=== PATIENT | male | born 1990 | race American Indian/Alaskan Native ===

== ENCOUNTER 2022-04-01 04:42 | Emergency (ER) | payer MEDICARE ==
[2022-04-01 06:04] VITALS: BP 134/87
[2022-04-01 09:32] LABS: Basophils % (Auto) 0.8 % (0.0-1.8); Eosinophils # (Auto) 0.1 K/mm3 (0.0-0.4); Eosinophils % (Auto) 1.6 % (0.0-4.3); Hemoglobin 12.5 gm/dl (11.8-15.2); Lymphocytes # (Auto) 1.7 K/mm3 (1.2-5.4); Lymphocytes % (Auto) 37.8 % (13.4-35.0); Mean Corpuscular HGB Conc 31 % (32-34); Mean Corpuscular Volume 70 fl (84-94); Monocytes # (Auto) 0.4 K/mm3 (0.0-0.8); Monocytes % (Auto) 8.6 % (0.0-7.3); Platelet Count 225 K/mm3 (140-440); Red Blood Count 5.69 M/mm3 (3.65-5.03)
[2022-04-01 09:55] LABS: Alanine Aminotransferase 9 units/L (7-56); Albumin 4.4 g/dL (3.9-5); BUN/Creatinine Ratio 10; Blood Urea Nitrogen 10 mg/dL (9-20); Hemolysis Index 4
[2022-04-01] MEDS ORDERED: dexAMETHasone 20 MG/5 ML VIAL IM ONE (10:07)
[2022-04-01 10:29] LABS: Bacteria,Urine 1+ /HPF (Negative); Bilirubin,Urine NEG (Negative); Blood,Urine NEG (Negative); Color,Urine Yellow (Yellow); Hyaline Casts,Urine 2 /LPF; Mucus,Urine FEW /HPF; Protein,Urine <15 mg/dL mg/dL (Negative); Urobilinogen,Urine < 2.0 mg/dL (<2.0)
--- NOTE | 2022-04-01 10:47 | Emergency Department Report ---
- General Chief complaint: Weakness Stated complaint: MS COMPLICATIONS Time Seen by Provider: 04/01/22 09:47 Source: patient Mode of arrival: Stretcher Limitations: Physical Limitation - History of Present Illness Initial comments: 31-year-old male with a past medical history of multiple sclerosis presents to the hospital stating he fell while walking with his crutches and had difficulty getting back up. Patient has chronic lower extremity weakness right greater than left secondary to MS and chronically walks with crutches. He also reports that his crutches are worn and broken and he needs a replacement. During ED stay he states he has been able to ambulate around the room as per his baseline. He denies urinary incontinence, retention, or fecal incontinence. He has c hronic right leg numbness which is also unchanged. Patient states in the past he was taking a daily every 12 hour MS pill and receiving q. 6 months IV infusions of Ocrevus for MS. He has not had any of these treatment since December 2020 since he lost his insurance. He recently had his insurance r einstated and visited his neurologist March 14 with plan to restart his MS treatment which is currently being arranged. No reports of fever, dysuria, or pain at this time Patient's neurologist is Dr. Hood at [place] - Related Data Previous Rx's Medication Instructions Recorded Last Taken Type Prednisone [predniSONE 10 mg 10 mg PO .TAPER 6 Days #1 tab 04/01/22 Unknown Rx (6-Day Pack, 21 Tabs)] Allergies Allergy/AdvReac Type Severity Reaction Status Date / Time No Known Allergies Allergy Unverified 04/01/22 06:04 ED Review of Systems ROS: Stated complaint: MS COMPLICATIONS Other details as noted in HPI Comment: All other systems reviewed and negative ED Past Medical Hx - Past Medical History Previous Medical History?: Yes Additional medical history: MS - Surgical History Past Surgical History?: No - Social History Smoking Status: Current Every Day Smoker Substance Use Type: None - Medications Home Medications: Home Medications Medication Instructions Recorded Confirmed Last Taken Type Prednisone [predniSONE 10 mg 10 mg PO .TAPER 6 Days #1 tab 04/01/22 Unknown Rx (6-Day Pack, 21 Tabs)] ED Physical Exam - General Limitations: Physical Limitation - Other Other exam information: General: No acute distress Head: Atraumatic Eyes: normal appearance ENT: Moist mucous membranes Neck: Normal appearance, no midline tenderness Chest: Clear to auscultation bilaterally CV: Regular rate and rhythm Abdomen: Soft, normal bowel sounds, nontender, nondistended, no rebound or guarding Back: Normal inspection Extremity: Normal inspection, full range of motion Neuro: Alert O x 3, no facial asymmetry, speech clear, 5/5 left leg, 3/5 right leg, decrease sensation to light touch right leg, pt states findings are chronic. Psych: Appropriate behavior Skin: No rash ED Course Vital Signs 04/01/22 05:50 Temperature 98.3 F Pulse Rate 68 Respiratory 18 Rate Blood Pressure 134/87 O2 Sat by Pulse 100 Oximetry ED Medical Decision Making - Lab Data Result diagrams: 04/01/22 08:57 04/01/22 08:57 Lab Results 04/01/22 04/01/22 04/01/22 Range/Units 08:57 08:57 10:15 WBC 4.6 (4.5-11.0) K/mm3 RBC 5.69 H (3.65-5.03) M/mm3 Hgb 12.5 (11.8-15.2) gm/dl Hct 40.0 (35.5-45.6) % MCV 70 L (84-94) fl MCH 22 L (28-32) pg MCHC 31 L (32-34) % RDW 15.0 (13.2-15.2) % Plt Count 225 (140-440) K/mm3 Lymph % (Auto) 37.8 H (13.4-35.0) % [place] % (Auto) 8.6 H (0.0-7.3) % Eos % (Auto) 1.6 (0.0-4.3) % Baso % (Auto) 0.8 (0.0-1.8) % Lymph # (Auto) 1.7 (1.2-5.4) K/mm3 [place] # (Auto) 0.4 (0.0-0.8) K/mm3 Eos # (Auto) 0.1 (0.0-0.4) K/mm3 Baso # (Auto) 0.0 (0.0-0.1) K/mm3 Seg Neutrophils % 51.2 (40.0-70.0) % Seg Neutrophils # 2.3 (1.8-7.7) K/mm3 Sodium 142 (137-145) mmol/L Potassium 4.5 (3.6-5.0) mmol/L Chloride 106.1 (98-107) mmol/L Carbon Dioxide 25 (22-30) mmol/L Anion Gap 15 mmol/L BUN 10 (9-20) mg/dL Creatinine 1.0 (0.8-1.3) mg/dL Estimated GFR > 60 ml/min BUN/Creatinine Ratio 10 % Glucose 86 (75-100) mg/dL Calcium 10.0 (8.4-10.2) mg/dL Phosphorus 4.70 H (2.5-4.5) mg/dL Magnesium 2.00 (1.7-2.3) mg/dL Total Bilirubin 0.30 (0.1-1.2) mg/dL AST 10 (5-40) units/L ALT 9 (7-56) units/L Alkaline Phosphatase 63 (35-129) units/L Total Creatine Kinase 138 (55-170) units/L Total Protein 6.1 L (6.3-8.2) g/dL Albumin 4.4 (3.9-5) g/dL Albumin/Globulin Ratio 2.6 % Urine Color Yellow (Yellow) Urine Turbidity Clear (Clear) Urine pH 5.0 (5.0-7.0) Ur Specific [place] 1.017 (1.003-1.030) Urine Protein <15 mg/dl (Negative) mg/dL Urine Glucose (UA) Neg (Negative) mg/dL Urine Ketones Neg (Negative) mg/dL Urine Blood Neg (Negative) Urine Nitrite Neg (Negative) Urine Bilirubin Neg (Negative) Urine Urobilinogen < 2.0 (<2.0) mg/dL Ur Leukocyte Esterase Neg (Negative) Urine WBC (Auto) 2.0 (0.0-6.0) /HPF Urine RBC (Auto) 1.0 (0.0-6.0) /HPF U Epithel Cells (Auto) < 1.0 (0-13.0) /HPF Urine Bacteria (Auto) 1+ (Negative) /HPF Hyaline Casts 2 /LPF Urine Mucus Few /HPF - Medical Decision Making 31-year-old male with multiple sclerosis with chronic lower extremity weakness and crutches dependence presents to the hospital due to an episode of falling and worsening in baseline lower extremity weakness. Patient now states his weakness is back to baseline. He is also asking for replacement crutches given that his crutches are worn and broken. Patient has normal labs and urine without signs of infection. He received 1 dose of IM Decadron and will be discharged on prednisone with outpatient follow-up with his neurologist encouraged Critical Care Time: No Critical care attestation.: If time is entered above; I have spent that time in minutes in the direct care of this critically ill patient, excluding procedure time. ED Disposition Clinical Impression: Multiple sclerosis exacerbation, Lower extremity weakness Disposition: 01 HOME / SELF CARE / HOMELESS Is pt being admited?: No Does the pt Need Aspirin: No Condition: Stable Instructions: Multiple Sclerosis Additional Instructions: Take the medication as prescribed. Follow-up with your neurologist. Return if symptoms worsen as indicated by your discharge instructions. Prescriptions: Prednisone [predniSONE 10 mg (6-Day Pack, 21 Tabs)] 10 mg PO .TAPER 6 Days #1 tab Referrals: PRIMARY CARE, [Primary Care Provider] - 3-5 Days Your, neurologist [Other] - 3-5 Days Time of Disposition: 10:51
== END 2022-04-01 11:19 | disposition home or self-care (01) ==
LOC: ED 04:42
DX: G35 Multiple sclerosis (principal); F17.200 Nicotine dependence, unspecified, uncomplicated; Z79.899 Other long term (current) drug therapy
CPT/HCPCS: 36415; 80053; 81001; 82550; 83735; 84100; 85025; 96372; 99283; J1100

== ENCOUNTER 2022-08-02 18:09 | Inpatient (IN) | payer MEDICARE ==
[2022-08-02] MEDS ORDERED: ACETAMINOPHEN 325 MG TAB PO ONE (19:37)
[2022-08-02] MEDS ORDERED: SODIUM CHLORIDE 0.9% 1000 ML IV SOLN IV ONE (19:38)
--- NOTE | 2022-08-02 20:30 | XRay Report ---
CHEST 1 VIEW 08/02/2022 7:17 PM INDICATION / CLINICAL INFORMATION: fever. COMPARISON: None available. FINDINGS: SUPPORT DEVICES: None. HEART / MEDIASTINUM: No significant abnormality. LUNGS / PLEURA: No significant pulmonary or pleural abnormality. No pneumothorax. ADDITIONAL FINDINGS: No significant additional findings. IMPRESSION: 1. No acute findings. Signer Name: Camille Diaz MD Signed: 08/02/2022 8:26 PM Workstation Name: [id number]
[2022-08-02 20:36] LABS: Alanine Aminotransferase 7 units/L (7-56); Albumin 4.6 g/dL (3.9-5); BUN/Creatinine Ratio 6; Blood Urea Nitrogen 5 mg/dL (9-20); Calcium 9.5 mg/dL (8.4-10.2); Hemolysis Index 5
[2022-08-02 20:41] LABS: Basophils % (Auto) 0.7 % (0.0-1.8); Hematocrit 38.4 % (35.5-45.6); Lymphocytes # (Auto) 0.7 K/mm3 (1.2-5.4); Lymphocytes % (Auto) 12.6 % (13.4-35.0); Mean Corpuscular HGB Conc 31 % (32-34); Monocytes # (Auto) 0.7 K/mm3 (0.0-0.8); Monocytes % (Auto) 12.5 % (0.0-7.3); Platelet Count 246 K/mm3 (140-440); Red Blood Count 5.49 M/mm3 (3.65-5.03); Red Cell Distribution Width 15.9 % (13.2-15.2)
[2022-08-02] MEDS ORDERED: KETOROLAC 30 MG/1 ML INJ IV ONE (20:48)
[2022-08-02 21:03] LABS: Mucus,Urine FEW /HPF; RBC,Urine < 1.0 /HPF (0.0-6.0); WBC,Urine < 1.0 /HPF (0.0-6.0)
--- NOTE | 2022-08-02 21:08 | Emergency Department Report ---
ED Fever HPI - General Chief Complaint: Extremity Injury, Lower Stated Complaint: NOT FEELING WELL Time Seen by Provider: 08/02/22 19:35 Source: patient Exam Limitations: physical impairment - History of Present Illness Initial Comments: 31-year-old male with relapsing and remitting multiple sclerosis presents to the hospital complaining of feeling hot with chills and generalized body aches since yesterday. Patient denies cough, chest pain, shortness of breath, abdominal garth n, dysuria, nausea, vomiting, or diarrhea. He is vaccinated for COVID. Patient reports he is having increased bilateral lower extremity weakness and numbness which also includes his hands. He also reports urinary incontinence. At baseline he has right leg weakness greater than the left and ambulates with crutches. Patient has not had any medication for multiple sclerosis since January 2021 and does not currently follow-up as an outpatient. He states his neurologist Dr. Quintana will not see him anymore ED Review of Systems ROS: Stated complaint: NOT FEELING WELL Other details as noted in HPI Comment: All other systems reviewed and negative ED Past Medical Hx - Past Medical History Additional medical history: MS - Social History Smoking Status: Current Every Day Smoker Substance Use Type: None - Medications Home Medications: Home Medications Medication Instructions Recorded Confirmed Last Taken Type Prednisone [predniSONE 10 mg 10 mg PO .TAPER 6 Days #1 tab 04/01/22 Unknown Rx (6-Day Pack, 21 Tabs)] ED Physical Exam - General Limitations: Physical Limitation - Other Other exam information: General: No acute distress Head: Atraumatic Eyes: normal appearance ENT: Moist mucous membranes Neck: Normal appearance, no midline tenderness, no nuchal rigidity Chest: Clear to auscultation bilaterally CV: Tachycardic regular rhythm Abdomen: Soft, normal bowel sounds, nontender, nondistended, no rebound or guarding Back: Normal inspection Extremity: Normal inspection, full range of motion Neuro: Alert O x 3, no facial asymmetry, speech clear, equal handgrip, 5/5 upper extremity strength. Bilateral leg weakness right greater than left with very weak dorsiflexion and plantarflexion of both feet. Unable to lift either leg off of the bed. Psych: Appropriate behavior Skin: No rash ED Course Vital Signs 08/02/22 08/02/22 08/02/22 18:39 19:43 19:45 Temperature 101.3 F H Pulse Rate 67 64 67 Respiratory 18 11 L 11 L Rate Blood Pressure 125/80 Blood Pressure 140/81 [Left] O2 Sat by Pulse 99 99 Oximetry 08/02/22 08/02/22 08/02/22 19:47 20:01 20:15 Temperature 100.3 F H Pulse Rate 69 64 Respiratory 12 17 Rate Blood Pressure 125/80 135/74 Blood Pressure [Left] O2 Sat by Pulse 100 Oximetry 08/02/22 08/02/22 08/02/22 20:31 20:45 21:01 Temperature Pulse Rate 59 L 66 56 L Respiratory 17 13 18 Rate Blood Pressure 125/80 131/80 131/80 Blood Pressure [Left] O2 Sat by Pulse 99 100 100 Oximetry 08/02/22 08/02/22 08/02/22 21:15 21:31 21:45 Temperature Pulse Rate 62 60 67 Respiratory 10 L 14 14 Rate Blood Pressure 135/76 135/76 112/57 Blood Pressure [Left] O2 Sat by Pulse 99 100 98 Oximetry 08/02/22 21:53 Temperature 98.9 F Pulse Rate Respiratory Rate Blood Pressure Blood Pressure [Left] O2 Sat by Pulse Oximetry - Consultations Consultation #1: 08/02/22 21:32 Case discussed with on-call neurologist Dr. Nobles who does not recommend steroids at this time. She will write a note regarding recommendations for neuro work-up. ED Medical Decision Making - Lab Data Result diagrams: 08/02/22 19:58 08/02/22 19:58 Lab Results 08/02/22 08/02/22 08/02/22 Range/Units 19:58 19:58 19:58 WBC 5.4 (4.5-11.0) K/mm3 RBC 5.49 H (3.65-5.03) M/mm3 Hgb 12.0 (11.8-15.2) gm/dl Hct 38.4 (35.5-45.6) % MCV 70 L (84-94) fl MCH 22 L (28-32) pg MCHC 31 L (32-34) % RDW 15.9 H (13.2-15.2) % Plt Count 246 (140-440) K/mm3 Lymph % (Auto) 12.6 L (13.4-35.0) % [place] % (Auto) 12.5 H (0.0-7.3) % Eos % (Auto) 0.0 (0.0-4.3) % Baso % (Auto) 0.7 (0.0-1.8) % Lymph # (Auto) 0.7 L (1.2-5.4) K/mm3 [place] # (Auto) 0.7 (0.0-0.8) K/mm3 Eos # (Auto) 0.0 (0.0-0.4) K/mm3 Baso # (Auto) 0.0 (0.0-0.1) K/mm3 Seg Neutrophils % 74.2 H (40.0-70.0) % Seg Neutrophils # 4.0 (1.8-7.7) K/mm3 Sodium 141 (137-145) mmol/L Potassium 4.1 (3.6-5.0) mmol/L Chloride 103.9 (98-107) mmol/L Carbon Dioxide 27 (22-30) mmol/L Anion Gap 14 mmol/L BUN 5 L (9-20) mg/dL Creatinine 0.9 (0.8-1.3) mg/dL Estimated GFR > 60 ml/min BUN/Creatinine Ratio 6 % Glucose 101 H (75-100) mg/dL Lactic Acid 1.10 (0.7-2.0) mmol/L Calcium 9.5 (8.4-10.2) mg/dL Total Bilirubin 0.40 (0.1-1.2) mg/dL AST 12 (5-40) units/L ALT 7 (7-56) units/L Alkaline Phosphatase 77 (35-129) units/L Total Protein 6.7 (6.3-8.2) g/dL Albumin 4.6 (3.9-5) g/dL Albumin/Globulin Ratio 2.2 % Urine Color (Yellow) Urine Turbidity (Clear) Ur Protein (Man) (Negative) mg/dL Ur Ketones (Man) (Negative) Ur Nitrite (Man) (Negative) Ur Reducing Substances Urine Ictotest (Negative) Leukocyte Esterase (Man) (Negative) Urine WBC (Auto) (0.0-6.0) /HPF Urine RBC (Auto) (0.0-6.0) /HPF Urine RBC (Manual) (Negative) Urine Mucus /HPF 08/02/22 Range/Units Unknown WBC (4.5-11.0) K/mm3 RBC (3.65-5.03) M/mm3 Hgb (11.8-15.2) gm/dl Hct (35.5-45.6) % MCV (84-94) fl MCH (28-32) pg MCHC (32-34) % RDW (13.2-15.2) % Plt Count (140-440) K/mm3 Lymph % (Auto) (13.4-35.0) % [place] % (Auto) (0.0-7.3) % Eos % (Auto) (0.0-4.3) % Baso % (Auto) (0.0-1.8) % Lymph # (Auto) (1.2-5.4) K/mm3 [place] # (Auto) (0.0-0.8) K/mm3 Eos # (Auto) (0.0-0.4) K/mm3 Baso # (Auto) (0.0-0.1) K/mm3 Seg Neutrophils % (40.0-70.0) % Seg Neutrophils # (1.8-7.7) K/mm3 Sodium (137-145) mmol/L Potassium (3.6-5.0) mmol/L Chloride (98-107) mmol/L Carbon Dioxide (22-30) mmol/L Anion Gap mmol/L BUN (9-20) mg/dL Creatinine (0.8-1.3) mg/dL Estimated GFR ml/min BUN/Creatinine Ratio % Glucose (75-100) mg/dL Lactic Acid (0.7-2.0) mmol/L Calcium (8.4-10.2) mg/dL Total Bilirubin (0.1-1.2) mg/dL AST (5-40) units/L ALT (7-56) units/L Alkaline Phosphatase (35-129) units/L Total Protein (6.3-8.2) g/dL Albumin (3.9-5) g/dL Albumin/Globulin Ratio % Urine Color Yellow (Yellow) Urine Turbidity Clear (Clear) Ur Protein (Man) 1+ (Negative) mg/dL Ur Ketones (Man) Negative (Negative) Ur Nitrite (Man) Negative (Negative) Ur Reducing Substances Not Reportable Urine Ictotest Negative (Negative) Leukocyte Esterase (Man) Negative (Negative) Urine WBC (Auto) < 1.0 (0.0-6.0) /HPF Urine RBC (Auto) < 1.0 (0.0-6.0) /HPF Urine RBC (Manual) Negative (Negative) Urine Mucus Few /HPF - Radiology Data Radiology results: report reviewed CHEST 1 VIEW 08/02/2022 7:17 PM INDICATION / CLINICAL INFORMATION: fever. COMPARISON: None available. FINDINGS: SUPPORT DEVICES: None. HEART / MEDIASTINUM: No significant abnormality. LUNGS / PLEURA: No significant pulmonary or pleural abnormality. No pneumothorax. ADDITIONAL FINDINGS: No significant additional findings. IMPRESSION: 1. No acute findings. - Medical Decision Making 31-year-old male with a past medical history of MS presents to the hospital with fever. Source of fever unknown. Patient does have worsening weakness. Case discussed with neurologist does not advise steroids at this time. Please refer to note for further imaging recommendations. Patient covered broad-spectrum antibiotics until cultures result. Case discussed with hospitalist for admission. Critical Care Time: No Critical care attestation.: If time is entered above; I have spent that time in minutes in the direct care of this critically ill patient, excluding procedure time. ED Disposition Clinical Impression: Fever, Multiple sclerosis exacerbation Disposition: ADMITTED INPATIENT Is pt being admited?: Yes Condition: Stable Time of Disposition: 22:16 (Dr Spencer/hospitaist)
[2022-08-02 21:09] LABS: Mean Corpuscular Volume 70 fl (84-94)
[2022-08-02 21:12] LABS: Color,Urine Yellow (Yellow); Ictotest,Urine Negative (Negative)
--- NOTE | 2022-08-02 21:51 | Emergency Department Report ---
Blank Doc - Documentation Documentation: [facility] Consult Note # Demographics Consult Type: General Neurology Patient Location: Emergency Room First Name: Piyush Last Name: Lorri Date of : 1990 Age: 31 Gender: Male Facility: [facility] Time of Initial Page (Eastern Time): 08/02/2022, 21:24 Time of Return Call (Eastern Time): 08/02/2022, 21:24 Phone Only Consult: 31yo M with h/o RRMS, not on meds due to insurance issue. he is febrile. he has worsened weakness from his baseline with this. no obvious cause for this fever is found so far. having bilateral leg weakness. Phone Agreement: phone consult deemed mutually sufficient for patient care # Plan Imaging: (urgency: routine): MRI Brain with AND without contrast MRI C spine MRI T spine all wwo contrast Other: I have discussed my recommendations with the referring provider Additional Recommendations: hold on steroids unless new enhancing # Logistics Telemedicine: phone only # Demographics First Name: Piyush Last Name: Lorri Facility: [facility]
[2022-08-02] MEDS ORDERED: CEFEPIME/NS 2 GM/100 ML 2 GM/100 ML BAG IV ONE (22:13)
[2022-08-02] MEDS ORDERED: MORPHINE 4 MG/1 ML INJ IV PRN (22:42)
[2022-08-02] MEDS ORDERED: ONDANSETRON 4 MG/2 ML INJ IV PRN (22:42)
--- NOTE | 2022-08-02 22:52 | History and Physical Report ---
History of Present Illness Date of examination: 08/02/22 Date of admission: 08/02/2022 Chief complaint: Fever Lower Extremity Weakness History of present illness: 1-year-old male with known history of relapsing and remitting multiple sclerosis presenting to the emergency room today complaining of generalized body aches and pain over the last 24 hours. He has also been having the sensation of feeling hot location of chills. He denies any cough, no chest pain or shortness of breath, no nausea or vomiting, no abdominal pain, no diarrhea. Patient denies any sick contacts and no recent travel. Denies any contact with anyone with COVID-19. He is fully vaccinated against COVID-19. Patient states he has been having progressive weakness and numbness in his lower extremities and occasionally in his hands. He has had urinary incontinence but denies any fecal incontinence. Does not follow-up any neurologist on outpatient basis at this time and he has not been on medication for over a year. Work-up in the emergency room today, chest x-ray was unremarkable. Patient was evaluated by the neurologist and recommendation was to check MRI of the brain, cervical spine thoracic and lumbosacral spine. Steroid not recommended at this time. Past History Past Medical History: other (Multiple Sclerosis) Past Surgical History: No surgical history Social history: smoking (Current daily smoker) Family history: no significant family history Medications and Allergies Allergies Allergy/AdvReac Type Severity Reaction Status Date / Time No Known Allergies Allergy Unverified 04/01/22 06:04 Home Medications Medication Instructions Recorded Confirmed Last Taken Type Prednisone [predniSONE 10 mg 10 mg PO .TAPER 6 Days #1 tab 04/01/22 Unknown Rx (6-Day Pack, 21 Tabs)] Active Meds: Active Medications Vancomycin HCl 1,750 mg/ (Sodium Chloride) 535 mls @ 333 mls/hr IV ONCE ONE; Protocol Stop: 08/03/22 00:49 Vancomycin HCl 1,250 mg/ (Sodium Chloride) 275 mls @ 166.667 mls/hr IV Q8H [place] Review of Systems Constitutional: no fever, no chills Ears, nose, mouth and throat: no nasal congestion, no sore throat Cardiovascular: no chest pain, no palpitations Respiratory: no cough, no shortness of breath Gastrointestinal: no abdominal pain, no nausea, no vomiting, no diarrhea Genitourinary Male: no dysuria, no hematuria, no flank pain, no nocturia Musculoskeletal: no neck pain, no low back pain Integumentary: no rash, no pruritis Neurological: weakness (Lower extremities), no headaches, no confusion Psychiatric: no anxiety, no depression Endocrine: no polyphagia, no polydipsia, no polyuria, no nocturia Exam - Constitutional Vitals: Temp Pulse Resp BP Pulse Ox 98.9 F 67 14 112/57 98 08/02/22 21:53 08/02/22 21:45 08/02/22 21:45 08/02/22 21:45 08/02/22 21:45 General appearance: Present: no acute distress, well-nourished - EENT Eyes: Present: PERRL, EOM intact. Absent: scleral icterus ENT: hearing intact, clear oral mucosa, dentition normal - Neck Neck: Present: supple, normal ROM - Respiratory Respiratory effort: normal Respiratory: bilateral: CTA - Cardiovascular Rhythm: regular Heart Sounds: Present: S1 & S2. Absent: systolic murmur, diastolic murmur, rub, click - Extremities Extremities: no ischemia, pulses intact, pulses symmetrical, No edema, normal temperature, normal color, abnormal (Bilateral lower extremity weakness) Peripheral Pulses: within normal limits - Abdominal General gastrointestinal: Present: soft, non-tender, non-distended, normal bowel sounds. Absent: mass - Integumentary Integumentary: Present: clear, warm, dry, normal turgor. Absent: rash - Musculoskeletal Musculoskeletal: strength equal bilaterally (In upper extremities), other (Bilateral lower extremity weakness) - Psychiatric Psychiatric: appropriate mood/affect, intact judgment & insight, memory intact, cooperative - Neurologic Neurologic: CNII-XII intact, other (Bilateral lower extremity weakness) Results - Labs CBC & Chem 7: 08/02/22 19:58 08/03/22 04:19 Labs: Abnormal lab results 08/02/22 08/02/22 Range/Units 19:58 19:58 RBC 5.49 H (3.65-5.03) M/mm3 MCV 70 L (84-94) fl MCH 22 L (28-32) pg MCHC 31 L (32-34) % RDW 15.9 H (13.2-15.2) % Lymph % (Auto) 12.6 L (13.4-35.0) % [place] % (Auto) 12.5 H (0.0-7.3) % Lymph # (Auto) 0.7 L (1.2-5.4) K/mm3 Seg Neutrophils % 74.2 H (40.0-70.0) % BUN 5 L (9-20) mg/dL Glucose 101 H (75-100) mg/dL Assessment and Plan Assesment: 1.Feveretiology unclear 2.H/O Multiple Sclerosis 3.Bilateral lower extremity weakness 4. Plan: 1. Patient admitted and placed on empiric IV antibiotics. 2. We will place consult to neurology for further evaluation and recommendations. 3. We will resume routine home medications once reconciled. 4. We will schedule patient's for's MRI of the brain, cervical, thoracic and lumbosacral spine as recommended by neurology. DVT Prophylaxis: SQ Heparin Code Status: Full Code
[2022-08-02] MEDS ORDERED: VANCOMYCIN PHARMACY TO DOSE IV SCH (23:00)
[2022-08-02] MEDS ORDERED: VANCOMYCIN 1,750 MG in SODIUM CHLORIDE 0.9% 500 ML 500 ML IV ONE (23:13)
[2022-08-02] MEDS: MORPHINE 2 MG/1 ML INJ IV PRN (23:36)
[2022-08-03] MEDS: ACETAMINOPHEN 325 MG TAB PO PRN ×2 (01:04→20:31)
[2022-08-03] MEDS: SODIUM CHLORIDE 0.9% 1000 ML 1,000 ML IV SCH (01:05)
[2022-08-03 05:35] LABS: BUN/Creatinine Ratio 6; Blood Urea Nitrogen 5 mg/dL (9-20); Calcium 8.2 mg/dL (8.4-10.2); Hemolysis Index 9
[2022-08-03] MEDS: MORPHINE 2 MG/1 ML INJ IV PRN ×2 (05:55→20:32)
[2022-08-03] MEDS: HEPARIN 5,000 UNIT/1 ML VIAL SUB-Q SCH ×3 (05:56→22:01)
[2022-08-03] MEDS ORDERED: VANCOMYCIN 1,250 MG in SODIUM CHLORIDE 0.9% 250ML 250 ML IV SCH (06:00)
--- NOTE | 2022-08-03 11:30 | Progress Note ---
Assessment and Plan 31-year-old male with known history of relapsing and remitting multiple sclerosis presenting to the emergency room complaining of generalized body aches and pain over the last 24 hours. Patient states he has been having progressive weakness and numbness in his lower extremities and occasionally in his hands. He has had urinary incontinence but denies any fecal incontinence. Does not follow-up any neurologist on outpatient basis at this time and he has not been on medication for over a year. Work-up in the emergency room showed unremarkable chest x-ray. Patient was evaluated by the neurologist and recommendation was to check MRI of the brain, cervical spine thoracic and lumbosacral spine. Steroid not recommended at this time. Patient also tested positive for COVID-19 today, he is fully vaccinated against COVID-19. Assessment -- Feverdue to positive COVID 19 -- H/O Multiple Sclerosis -- Bilateral lower extremity weakness -MS flare ?? --Bladder incontinance --DVT Prophylaxis: SQ Heparin --Code Status: Full Code Plan: -- will dc abx if blood cx neg, follow inflammatory markers, pt on RA - no need for steroid -- consulted neurology for further evaluation and recommendations. --resumed routine home medications -- pending MRI of the brain, cervical, thoracic and lumbosacral spine as recommended by neurology. Subjective Date of service: 08/03/22 Interval history: Patient seen and examined. Medical records and medication list reviewed. No acute event overnight noted by the RN. Patient denies any chest pain or difficulty breathing. Patient is tolerating diet. Discussed plan of care at bedside with patient. Patient is positive for COVID-19 Objective - Exam Narrative Exam: GENERAL: well-developed and well-nourished lying on bed appeared to be in no discomfort. HEENT: Normocephalic. Atraumatic. No conjunctival congestion or icterus. Patient has moist mucous membranes. NECK: Supple. Trachea midline. CHEST/LUNGS: Clear to auscultated bilaterally, breathing nonlabored. No wheezes crackles or rhonchi. HEART/CARDIOVASCULAR: Regular in rate and rhythm. S1 and S2 positive. ABDOMEN: Abdomen is soft, nontender. Patient has normal bowel sounds. SKIN: There is no rash. Warm and dry. NEURO: No focal motor deficit. Follows command. MUSCULOSKELETAL: No joint effusion or tenderness. EXTRIMITY: No edema, no cyanosis or clubbing. PSYCH: Cooperative. - Constitutional Vitals: Vital Signs - 12hr 08/02/22 08/02/22 08/02/22 23:31 23:45 23:51 Temperature Pulse Rate 74 67 60 Respiratory 17 14 15 Rate Blood Pressure 115/74 98/53 98/53 O2 Sat by Pulse 100 100 99 Oximetry 08/03/22 08/03/22 08/03/22 00:01 00:11 00:30 Temperature 97.2 F L Pulse Rate 62 62 55 L Respiratory 16 15 18 Rate Blood Pressure 98/53 98/53 106/63 O2 Sat by Pulse 97 100 96 Oximetry 08/03/22 05:53 Temperature 98.0 F Pulse Rate 54 L Respiratory Rate Blood Pressure 106/55 O2 Sat by Pulse 100 Oximetry - Labs CBC & Chem 7: 08/02/22 19:58 08/03/22 04:19 Labs: Abnormal lab results 08/02/22 08/02/22 08/03/22 Range/Units 19:58 19:58 04:19 RBC 5.49 H (3.65-5.03) M/mm3 MCV 70 L (84-94) fl MCH 22 L (28-32) pg MCHC 31 L (32-34) % RDW 15.9 H (13.2-15.2) % Lymph % (Auto) 12.6 L (13.4-35.0) % Wirt % (Auto) 12.5 H (0.0-7.3) % Lymph # (Auto) 0.7 L (1.2-5.4) K/mm3 Seg Neutrophils % 74.2 H (40.0-70.0) % Chloride 111.6 H (98-107) mmol/L Carbon Dioxide 21 L (22-30) mmol/L BUN 5 L 5 L (9-20) mg/dL Glucose 101 H 126 H (75-100) mg/dL Calcium 8.2 L (8.4-10.2) mg/dL SARS-CoV-2 (PCR) (Negative) 08/03/22 Range/Units 09:37 RBC (3.65-5.03) M/mm3 MCV (84-94) fl MCH (28-32) pg MCHC (32-34) % RDW (13.2-15.2) % Lymph % (Auto) (13.4-35.0) % Wirt % (Auto) (0.0-7.3) % Lymph # (Auto) (1.2-5.4) K/mm3 Seg Neutrophils % (40.0-70.0) % Chloride (98-107) mmol/L Carbon Dioxide (22-30) mmol/L BUN (9-20) mg/dL Glucose (75-100) mg/dL Calcium (8.4-10.2) mg/dL SARS-CoV-2 (PCR) Positive A (Negative)
[2022-08-04] MEDS: HEPARIN 5,000 UNIT/1 ML VIAL SUB-Q SCH ×3 (05:56→22:42)
[2022-08-04 09:06] LABS: C-Reactive Protein 1.8 mg/dL (0.00-1.30)
--- NOTE | 2022-08-04 10:12 | Progress Note ---
Assessment and Plan 31-year-old male with known history of relapsing and remitting multiple sclerosis presenting to the emergency room complaining of generalized body aches and pain over the last 24 hours. Patient states he has been having progressive weakness and numbness in his lower extremities and occasionally in his hands. He has had urinary incontinence but denies any fecal incontinence. Does not follow-up any neurologist on outpatient basis at this time and he has not been on medication for over a year. Work-up in the emergency room showed unremarkable chest x-ray. Patient was evaluated by the neurologist and recommendation was to check MRI of the brain, cervical spine thoracic and lumbosacral spine. Steroid not recommended at this time. Patient also tested positive for COVID-19 today, he is fully vaccinated against COVID-19. Assessment -- Feverdue to positive COVID 19 -- H/O Multiple Sclerosis -- Bilateral lower extremity weakness -MS flare ?? --Bladder incontinance --Peripheral neuropathy --DVT Prophylaxis: SQ Heparin --Code Status: Full Code Plan: -- will dc abx if blood cx neg, follow inflammatory markers, pt on RA - no need for steroid -- consulted neurology for further evaluation and recommendations. --resumed routine home medications -- pending MRI of the brain, cervical, thoracic and lumbosacral spine as recommended by neurology. -- Wait for PT eval, add neurontin for neuropathy Subjective Date of service: 08/04/22 Interval history: Patient seen and examined. Medical records and medication list reviewed. No acute event overnight noted by the RN. Patient denies any chest pain or difficulty breathing. Patient is tolerating diet. Discussed plan of care at bedside with patient. Patient is positive for COVID-19 Objective - Exam Narrative Exam: GENERAL: well-developed and well-nourished AAM lying on bed appeared to be in no discomfort. HEENT: Normocephalic. Atraumatic. No conjunctival congestion or icterus. Patient has moist mucous membranes. NECK: Supple. Trachea midline. CHEST/LUNGS: Clear to auscultated bilaterally, breathing nonlabored. No wheezes crackles or rhonchi. HEART/CARDIOVASCULAR: Regular in rate and rhythm. S1 and S2 positive. ABDOMEN: Abdomen is soft, nontender. Patient has normal bowel sounds. SKIN: There is no rash. Warm and dry. NEURO: No focal motor deficit. Follows command. b/l LE weakness MUSCULOSKELETAL: No joint effusion or tenderness. EXTRIMITY: No edema, no cyanosis or clubbing. PSYCH: Cooperative. - Constitutional Vitals: Vital Signs - 12hr 08/04/22 06:02 Temperature 97.9 F Pulse Rate 52 L Respiratory 18 Rate Blood Pressure 104/66 [Left] O2 Sat by Pulse 100 Oximetry - Labs CBC & Chem 7: 08/02/22 19:58 08/04/22 07:59 Labs: Abnormal lab results 08/04/22 Range/Units 07:59 C-Reactive Protein 1.80 H (0.00-1.30) mg/dL
[2022-08-04] MEDS: GABAPENTIN 100 MG CAP PO SCH ×2 (14:49→22:42)
[2022-08-04] MEDS: SODIUM CHLORIDE 0.9% 1000 ML 1,000 ML IV SCH (15:02)
[2022-08-04] MEDS: MORPHINE 2 MG/1 ML INJ IV PRN ×2 (15:03→22:51)
[2022-08-05] MEDS: HEPARIN 5,000 UNIT/1 ML VIAL SUB-Q SCH ×3 (05:50→22:03)
[2022-08-05] MEDS: GABAPENTIN 100 MG CAP PO SCH ×3 (05:50→22:03)
[2022-08-05] MEDS: SODIUM CHLORIDE 0.9% 1000 ML 1,000 ML IV SCH ×2 (06:42→22:10)
--- NOTE | 2022-08-05 08:09 | Progress Note ---
Assessment and Plan Assessment and plan: The patient is a 56 YO male with history of Hypertension, DM-2, Diabetic retinopathy and CKD who was brought to [facility] ED 07/29/22 with increasing bilateral leg swelling and shortness of breath. Patient is a poor historian. The patient admits that he has been out of his medications for several weeks and currently he is not following with any physician. Initially when he presented to the emergency department he was complaining of chest pain which has resolved. His initial BP was 212/123 mmHg. Chest x-ray showed pulmonary edema and pleural effusion. Labs notable for Creatinine 3.5 and BUN 41. Chest pain Nonischemic cardiomyopathy Severe pulmonary hypertension Acute on chronic systolic heart failure Acute kidney injury on chronic kidney disease Diabetes mellitus type 2 07/30/2022. Lexiscan stress test completed today shows normal myocardial perfusion in all segments with an EF of 42%. An echocardiogram completed in this hospital 3 months ago revealed moderate left ventricular systolic dysfunction with EF 35-40%. There was moderate left ventricular hypertrophy. Also, patient was noted to have severe pulmonary hypertension. Cardiology recommends afterload reducing agents and beta-blockers. Patient appears to have a baseline creatinine of approximately 2.2. Nephrology has been consulted. Continue Accu-Cheks and sliding scale insulin. We will consult pulmonary for pulmonary hypertension as per cardiology recommendation 07/31/2022. Await pulmonology evaluation. Continue blood pressure control with amlodipine, hydralazine and clonidine. Continue aspirin, Coreg and Lasix twice daily. GDMT per cardiology recommendations. Patient currently only requiring 3 L of oxygen. Patient with vasomotor PRASAD superimposed on CKD in the setting of decompensated systolic heart failure. Renal ultrasound negative for hydronephrosis. Creatinine appears to have leveled off. Nephrology following. 08/02/2022. CT of the chest revealed pleural fluid and atelectasis right greater than left with mild right-sided pneumonia. No clinical evidence for pneumonia at this time. We will check a procalcitonin level and start empiric antibiotics. Discontinue antibiotics if procalcitonin normal. Patient also with soft tissue anasarca. Pulmonary suggests right heart cath for assessment of the patient's pulmonary hypertension. Cardiology to plan for catheterization. 08/03/2022. Continue IV antibiotics until procalcitonin level resulted. Await right heart catheterization per cardiology. Continue aspirin, isosorbide, Coreg and Lasix. Continue O2 to maintain sats greater than 92%. Renal ultrasound negative for hydronephrosis. Patient with cardiorenal syndrome. Creatinine continues to rise with 3.7 today 08/04/2022. Patient is stable and denies any cardiac symptoms at this time. Cardiology recommends to continue treatment for heart failure as per the GDMT. Patient is scheduled for a right and left heart catheterization on Friday. Creatinine slightly better at 3.3. Vasomotor PRASAD superimposed on CKD in the setting of decompensated CHF. Avoid nephrotoxic agents. Procalcitonin normal so will d/c abx. PT eval. 08/05/2022. Continue GDMT for heart failure. Patient is stable and denies any cardiac symptoms at this time. Patient is scheduled for a right and left heart catheterization tomorrow. Creatinine has improved again today to 2.9. Vasomotor PRASAD superimposed on CKD in the setting of decompensated CHF. Avoid nephrotoxic agents. Cardiology, pulmonary and nephrology following History Interval history: No new issues Hospitalist Physical - Constitutional Vitals: Temp Pulse Resp BP Pulse Ox 97.9 F 52 L 18 112/56 100 08/05/22 05:55 08/05/22 05:55 08/05/22 05:55 08/05/22 05:55 08/05/22 05:55 General appearance: Present: no acute distress, well-nourished - EENT Eyes: Present: PERRL, EOM intact ENT: hearing intact, clear oral mucosa, dentition normal - Neck Neck: Present: supple, normal ROM - Respiratory Respiratory effort: normal Respiratory: bilateral: CTA - Cardiovascular Rhythm: regular Heart Sounds: Present: S1 & S2. Absent: gallop, rub - Extremities Extremities: no ischemia, No edema, Full ROM - Abdominal General gastrointestinal: soft, non-tender, non-distended, normal bowel sounds - Integumentary Integumentary: Present: clear, warm, dry - Neurologic Neurologic: CNII-XII intact, moves all extremities Results - Labs CBC & Chem 7: 08/02/22 19:58 08/04/22 07:59 Labs: Laboratory Last Values WBC 5.4 K/mm3 (4.5-11.0) 08/02/22 19:58 RBC 5.49 M/mm3 (3.65-5.03) H 08/02/22 19:58 Hgb 12.0 gm/dl (11.8-15.2) 08/02/22 19:58 Hct 38.4 % (35.5-45.6) 08/02/22 19:58 MCV 70 fl (84-94) L 08/02/22 19:58 MCH 22 pg (28-32) L 08/02/22 19:58 MCHC 31 % (32-34) L 08/02/22 19:58 RDW 15.9 % (13.2-15.2) H 08/02/22 19:58 Plt Count 246 K/mm3 (140-440) 08/02/22 19:58 Lymph % (Auto) 12.6 % (13.4-35.0) L 08/02/22 19:58 Boyle % (Auto) 12.5 % (0.0-7.3) H 08/02/22 19:58 Eos % (Auto) 0.0 % (0.0-4.3) 08/02/22 19:58 Baso % (Auto) 0.7 % (0.0-1.8) 08/02/22 19:58 Lymph # (Auto) 0.7 K/mm3 (1.2-5.4) L 08/02/22 19:58 Boyle # (Auto) 0.7 K/mm3 (0.0-0.8) 08/02/22 19:58 Eos # (Auto) 0.0 K/mm3 (0.0-0.4) 08/02/22 19:58 Baso # (Auto) 0.0 K/mm3 (0.0-0.1) 08/02/22 19:58 Seg Neutrophils % 74.2 % (40.0-70.0) H 08/02/22 19:58 Seg Neutrophils # 4.0 K/mm3 (1.8-7.7) 08/02/22 19:58 D-Dimer 138.01 ng/mlDDU (0-234) 08/04/22 07:59 Sodium 144 mmol/L (137-145) 08/03/22 04:19 Potassium 3.9 mmol/L (3.6-5.0) 08/03/22 04:19 Chloride 111.6 mmol/L (98-107) H 08/03/22 04:19 Carbon Dioxide 21 mmol/L (22-30) L 08/03/22 04:19 Anion Gap 15 mmol/L 08/03/22 04:19 BUN 5 mg/dL (9-20) L 08/03/22 04:19 Creatinine 0.8 mg/dL (0.8-1.3) 08/03/22 04:19 Estimated GFR > 60 ml/min 08/03/22 04:19 BUN/Creatinine Ratio 6 % 08/03/22 04:19 Glucose 86 mg/dL (75-100) 08/04/22 07:59 Lactic Acid 1.50 mmol/L (0.7-2.0) 08/03/22 04:19 Calcium 8.2 mg/dL (8.4-10.2) L 08/03/22 04:19 Ferritin 137.2 ng/mL (30.0-300.0) 08/04/22 07:59 Total Bilirubin 0.40 mg/dL (0.1-1.2) 08/02/22 19:58 AST 12 units/L (5-40) 08/02/22 19:58 ALT 7 units/L (7-56) 08/02/22 19:58 Alkaline Phosphatase 77 units/L (35-129) 08/02/22 19:58 Lactate Dehydrogenase 131 units/L (91-180) 08/04/22 07:59 C-Reactive Protein 1.80 mg/dL (0.00-1.30) H 08/04/22 07:59 Total Protein 6.7 g/dL (6.3-8.2) 08/02/22 19:58 Albumin 4.6 g/dL (3.9-5) 08/02/22 19:58 Albumin/Globulin Ratio 2.2 % 08/02/22 19:58 Procalcitonin < 0.05 ng/mL (<0.15) 08/04/22 07:59 Urine Color Yellow (Yellow) 08/02/22 Unknown Urine Turbidity Clear (Clear) 08/02/22 Unknown Ur Protein (Man) 1+ mg/dL (Negative) 08/02/22 Unknown Ur Ketones (Man) Negative (Negative) 08/02/22 Unknown Ur Nitrite (Man) Negative (Negative) 08/02/22 Unknown Ur Reducing Substances Not Reportable 08/02/22 Unknown Urine Ictotest Negative (Negative) 08/02/22 Unknown Leukocyte Esterase (Man) Negative (Negative) 08/02/22 Unknown Urine WBC (Auto) < 1.0 /HPF (0.0-6.0) 08/02/22 Unknown Urine RBC (Auto) < 1.0 /HPF (0.0-6.0) 08/02/22 Unknown Urine RBC (Manual) Negative (Negative) 08/02/22 Unknown Urine Mucus Few /HPF 08/02/22 Unknown SARS-CoV-2 (PCR) Positive (Negative) A 08/03/22 09:37 Microbiology: Microbiology 08/02/22 19:58 Peripheral/Venous Blood Culture - Preliminary NO GROWTH AFTER 48 HOURS 08/02/22 19:58 Peripheral/Venous Blood Culture - Preliminary NO GROWTH AFTER 48 HOURS Rodriguez/IV: Voiding Method Condom Catheter Active Medications - Current Medications Current Medications: Generic Name Dose Route Start Last Admin Trade Name Freq PRN Reason Stop Dose Admin Acetaminophen 650 mg 08/02/22 22:42 08/03/22 20:31 Acetaminophen 325 Mg Tab PO 650 mg Q4H PRN Administration Pain MILD(1-3)/Fever >100.5/GARCÍA Gabapentin 100 mg 08/04/22 14:00 08/05/22 05:50 Gabapentin 100 Mg Cap PO 100 mg Q8HR HAILEY Administration Heparin Sodium (Porcine) 5,000 unit 08/03/22 06:00 08/05/22 05:50 Heparin 5,000 Unit/1 Ml Vial SUB-Q 5,000 unit Q8HR HAILEY Administration Sodium Chloride 1,000 mls @ 75 mls/hr 08/02/22 22:45 08/05/22 06:42 Nacl 0.9% 1000 Ml IV 75 mls/hr DIRECT HAILEY Administration Morphine Sulfate 2 mg 08/02/22 22:42 08/04/22 22:51 Morphine 2 Mg/1 Ml Inj IV 2 mg Q4H PRN Administration Pain, Moderate (4-6) Morphine Sulfate 4 mg 08/02/22 22:42 Morphine 4 Mg/1 Ml Inj IV Q4H PRN Pain , Severe (7-10) Ondansetron HCl 4 mg 08/02/22 22:42 Ondansetron 4 Mg/2 Ml Inj IV Q8H PRN Nausea And Vomiting Sodium Chloride 10 ml 08/03/22 10:00 08/04/22 22:42 Sodium Chloride 0.9% 10 Ml Flush Syringe IV 10 ml BID HAILEY Administration Sodium Chloride 10 ml 08/02/22 22:42 Sodium Chloride 0.9% 10 Ml Flush Syringe IV PRN PRN LINE FLUSH
--- NOTE | 2022-08-05 08:24 | Progress Note ---
Assessment and Plan Assessment and plan: 31-year-old male with known history of relapsing and remitting multiple sclerosis presenting to the emergency room complaining of generalized body aches and pain over the last 24 hours. Patient states he has been having progressive weakness and numbness in his lower extremities and occasionally in his hands. He has had urinary incontinence but denies any fecal incontinence. Does not follow-up any neurologist on outpatient basis at this time and he has not been on medication for over a year. Work-up in the emergency room showed unremarkable chest x-ray. Patient was evaluated by the neurologist and recommendation was to check MRI of the brain, cervical spine thoracic and lumbosacral spine. Steroid not recommended at this time. Patient also tested positive for COVID-19 on 08/03/2022, he is fully vaccinated against COVID-19. Assessment COVID-19 infection Multiple Sclerosis Bilateral lower extremity weakness -MS flare ?? Bladder incontinence Peripheral neuropathy DVT Prophylaxis: SQ Heparin Code Status: Full Code Plan: will dc abx if blood cx neg, follow inflammatory markers, pt on RA - no need for steroid consulted neurology for further evaluation and recommendations. resumed routine home medications pending MRI of the brain, cervical, thoracic and lumbosacral spine as recommended by neurology. Consider steroids for MS flare, holding for now per neurology recommendation. Await neurology consultation Await for PT eval Continue neurontin for neuropathy History Interval history: No new issues overnight Hospitalist Physical - Constitutional Vitals: Temp Pulse Resp BP Pulse Ox 97.9 F 52 L 18 112/56 100 08/05/22 05:55 08/05/22 05:55 08/05/22 05:55 08/05/22 05:55 08/05/22 05:55 General appearance: Present: no acute distress, well-nourished - EENT Eyes: Present: PERRL, EOM intact ENT: hearing intact, clear oral mucosa, dentition normal - Neck Neck: Present: supple, normal ROM - Respiratory Respiratory effort: normal Respiratory: bilateral: CTA - Cardiovascular Rhythm: regular Heart Sounds: Present: S1 & S2. Absent: gallop, rub - Extremities Extremities: no ischemia, No edema, Full ROM - Abdominal General gastrointestinal: soft, non-tender, non-distended, normal bowel sounds - Integumentary Integumentary: Present: clear, warm, dry - Neurologic Neurologic: CNII-XII intact, moves all extremities Results - Labs CBC & Chem 7: 08/02/22 19:58 08/04/22 07:59 Labs: Laboratory Last Values WBC 5.4 K/mm3 (4.5-11.0) 08/02/22 19:58 RBC 5.49 M/mm3 (3.65-5.03) H 08/02/22 19:58 Hgb 12.0 gm/dl (11.8-15.2) 08/02/22 19:58 Hct 38.4 % (35.5-45.6) 08/02/22 19:58 MCV 70 fl (84-94) L 08/02/22 19:58 MCH 22 pg (28-32) L 08/02/22 19:58 MCHC 31 % (32-34) L 08/02/22 19:58 RDW 15.9 % (13.2-15.2) H 08/02/22 19:58 Plt Count 246 K/mm3 (140-440) 08/02/22 19:58 Lymph % (Auto) 12.6 % (13.4-35.0) L 08/02/22 19:58 Vigo % (Auto) 12.5 % (0.0-7.3) H 08/02/22 19:58 Eos % (Auto) 0.0 % (0.0-4.3) 08/02/22 19:58 Baso % (Auto) 0.7 % (0.0-1.8) 08/02/22 19:58 Lymph # (Auto) 0.7 K/mm3 (1.2-5.4) L 08/02/22 19:58 Vigo # (Auto) 0.7 K/mm3 (0.0-0.8) 08/02/22 19:58 Eos # (Auto) 0.0 K/mm3 (0.0-0.4) 08/02/22 19:58 Baso # (Auto) 0.0 K/mm3 (0.0-0.1) 08/02/22 19:58 Seg Neutrophils % 74.2 % (40.0-70.0) H 08/02/22 19:58 Seg Neutrophils # 4.0 K/mm3 (1.8-7.7) 08/02/22 19:58 D-Dimer 138.01 ng/mlDDU (0-234) 08/04/22 07:59 Sodium 144 mmol/L (137-145) 08/03/22 04:19 Potassium 3.9 mmol/L (3.6-5.0) 08/03/22 04:19 Chloride 111.6 mmol/L (98-107) H 08/03/22 04:19 Carbon Dioxide 21 mmol/L (22-30) L 08/03/22 04:19 Anion Gap 15 mmol/L 08/03/22 04:19 BUN 5 mg/dL (9-20) L 08/03/22 04:19 Creatinine 0.8 mg/dL (0.8-1.3) 08/03/22 04:19 Estimated GFR > 60 ml/min 08/03/22 04:19 BUN/Creatinine Ratio 6 % 08/03/22 04:19 Glucose 86 mg/dL (75-100) 08/04/22 07:59 Lactic Acid 1.50 mmol/L (0.7-2.0) 08/03/22 04:19 Calcium 8.2 mg/dL (8.4-10.2) L 08/03/22 04:19 Ferritin 137.2 ng/mL (30.0-300.0) 08/04/22 07:59 Total Bilirubin 0.40 mg/dL (0.1-1.2) 08/02/22 19:58 AST 12 units/L (5-40) 08/02/22 19:58 ALT 7 units/L (7-56) 08/02/22 19:58 Alkaline Phosphatase 77 units/L (35-129) 08/02/22 19:58 Lactate Dehydrogenase 131 units/L (91-180) 08/04/22 07:59 C-Reactive Protein 1.80 mg/dL (0.00-1.30) H 08/04/22 07:59 Total Protein 6.7 g/dL (6.3-8.2) 08/02/22 19:58 Albumin 4.6 g/dL (3.9-5) 08/02/22 19:58 Albumin/Globulin Ratio 2.2 % 08/02/22 19:58 Procalcitonin < 0.05 ng/mL (<0.15) 08/04/22 07:59 Urine Color Yellow (Yellow) 08/02/22 Unknown Urine Turbidity Clear (Clear) 08/02/22 Unknown Ur Protein (Man) 1+ mg/dL (Negative) 08/02/22 Unknown Ur Ketones (Man) Negative (Negative) 08/02/22 Unknown Ur Nitrite (Man) Negative (Negative) 08/02/22 Unknown Ur Reducing Substances Not Reportable 08/02/22 Unknown Urine Ictotest Negative (Negative) 08/02/22 Unknown Leukocyte Esterase (Man) Negative (Negative) 08/02/22 Unknown Urine WBC (Auto) < 1.0 /HPF (0.0-6.0) 08/02/22 Unknown Urine RBC (Auto) < 1.0 /HPF (0.0-6.0) 08/02/22 Unknown Urine RBC (Manual) Negative (Negative) 08/02/22 Unknown Urine Mucus Few /HPF 08/02/22 Unknown SARS-CoV-2 (PCR) Positive (Negative) A 08/03/22 09:37 Microbiology: Microbiology 08/02/22 19:58 Peripheral/Venous Blood Culture - Preliminary NO GROWTH AFTER 48 HOURS 08/02/22 19:58 Peripheral/Venous Blood Culture - Preliminary NO GROWTH AFTER 48 HOURS Rodriguez/IV: Voiding Method Condom Catheter Active Medications - Current Medications Current Medications: Generic Name Dose Route Start Last Admin Trade Name Rayq PRN Reason Stop Dose Admin Acetaminophen 650 mg 08/02/22 22:42 08/03/22 20:31 Acetaminophen 325 Mg Tab PO 650 mg Q4H PRN Administration Pain MILD(1-3)/Fever >100.5/GARCÍA Gabapentin 100 mg 08/04/22 14:00 08/05/22 05:50 Gabapentin 100 Mg Cap PO 100 mg Q8HR HAILEY Administration Heparin Sodium (Porcine) 5,000 unit 08/03/22 06:00 08/05/22 05:50 Heparin 5,000 Unit/1 Ml Vial SUB-Q 5,000 unit Q8HR HAILEY Administration Sodium Chloride 1,000 mls @ 75 mls/hr 08/02/22 22:45 08/05/22 06:42 Nacl 0.9% 1000 Ml IV 75 mls/hr DIRECT HAILEY Administration Morphine Sulfate 2 mg 08/02/22 22:42 08/04/22 22:51 Morphine 2 Mg/1 Ml Inj IV 2 mg Q4H PRN Administration Pain, Moderate (4-6) Morphine Sulfate 4 mg 08/02/22 22:42 Morphine 4 Mg/1 Ml Inj IV Q4H PRN Pain , Severe (7-10) Ondansetron HCl 4 mg 08/02/22 22:42 Ondansetron 4 Mg/2 Ml Inj IV Q8H PRN Nausea And Vomiting Sodium Chloride 10 ml 08/03/22 10:00 08/04/22 22:42 Sodium Chloride 0.9% 10 Ml Flush Syringe IV 10 ml BID HAILEY Administration Sodium Chloride 10 ml 08/02/22 22:42 Sodium Chloride 0.9% 10 Ml Flush Syringe IV PRN PRN LINE FLUSH
[2022-08-05] MEDS: MORPHINE 2 MG/1 ML INJ IV PRN (22:04)
[2022-08-06] MEDS: GABAPENTIN 100 MG CAP PO SCH ×3 (05:42→22:05)
[2022-08-06] MEDS: HEPARIN 5,000 UNIT/1 ML VIAL SUB-Q SCH ×3 (05:43→22:04)
[2022-08-06] MEDS: SODIUM CHLORIDE 0.9% 1000 ML 1,000 ML IV SCH (13:13)
--- NOTE | 2022-08-06 13:43 | Progress Note ---
Assessment and Plan Assessment and plan: 31-year-old male with known history of relapsing and remitting multiple sclerosis presenting to the emergency room complaining of generalized body aches and pain over the last 24 hours. Patient states he has been having progressive weakness and numbness in his lower extremities and occasionally in his hands. He has had urinary incontinence but denies any fecal incontinence. Does not follow-up any neurologist on outpatient basis at this time and he has not been on medication for over a year. Work-up in the emergency room showed unremarkable chest x-ray. Patient was evaluated by the neurologist and recommendation was to check MRI of the brain, cervical spine thoracic and lumbosacral spine. Steroid not recommended at this time. Patient also tested positive for COVID-19 on 08/03/2022, he is fully vaccinated against COVID-19. #COVID-19 infection Patient currently saturating well on room air; therefore, patient does not require steroid administration for COVID-19 infection or remdesivir Continue airborne and droplet precautions #Multiple Sclerosis exacerbation #Bladder incontinence #Peripheral neuropathy Currently pending MRI brain with and without contrast, MRI cervical spine/thoracic spine/lumbar spine Neurology consulted; pending recs Currently holding on steroids for multiple sclerosis exacerbation. Awaiting neurology's recommendations about possible initiation. Continue Neurontin Pending PT evaluation. Continue Rodriguez #Advanced care planning -Disease education conducted, care plan discussed, diagnoses discussed, prognosis discussed, and patient acknowledges understanding with care plan -Time: +30 min Disposition Plan: Continue medical management Total Time Spent with Patient (Minutes): 45 minutes History Interval history: No acute events overnight. Hospitalist Physical - Constitutional Vitals: Temp Pulse Resp BP Pulse Ox 97.7 F 50 L 18 107/59 98 08/06/22 04:28 08/06/22 04:28 08/06/22 04:28 08/06/22 04:28 08/06/22 04:28 General appearance: Present: no acute distress, well-nourished - EENT Eyes: Present: PERRL, EOM intact ENT: hearing intact, clear oral mucosa, dentition normal - Neck Neck: Present: supple, normal ROM - Respiratory Respiratory effort: normal Respiratory: bilateral: CTA - Cardiovascular Rhythm: regular Heart Sounds: Present: S1 & S2 - Extremities Extremities: no ischemia, pulses intact, pulses symmetrical, No edema, normal temperature, normal color Peripheral Pulses: within normal limits - Abdominal General gastrointestinal: soft, non-tender, non-distended, normal bowel sounds - Integumentary Integumentary: Present: clear, warm, dry - Psychiatric Psychiatric: appropriate mood/affect, intact judgment & insight, memory intact, cooperative - Neurologic Neurologic: CNII-XII intact, moves all extremities, other (3/5 strength of right lower extremity and 4/5 strength of left lower extremity) - Allied Health Allied health notes reviewed: nursing Results - Labs CBC & Chem 7: 08/02/22 19:58 08/04/22 07:59 Labs: Laboratory Last Values WBC 5.4 K/mm3 (4.5-11.0) 08/02/22 19:58 RBC 5.49 M/mm3 (3.65-5.03) H 08/02/22 19:58 Hgb 12.0 gm/dl (11.8-15.2) 08/02/22 19:58 Hct 38.4 % (35.5-45.6) 08/02/22 19:58 MCV 70 fl (84-94) L 08/02/22 19:58 MCH 22 pg (28-32) L 08/02/22 19:58 MCHC 31 % (32-34) L 08/02/22 19:58 RDW 15.9 % (13.2-15.2) H 08/02/22 19:58 Plt Count 246 K/mm3 (140-440) 08/02/22 19:58 Lymph % (Auto) 12.6 % (13.4-35.0) L 08/02/22 19:58 [place] % (Auto) 12.5 % (0.0-7.3) H 08/02/22 19:58 Eos % (Auto) 0.0 % (0.0-4.3) 08/02/22 19:58 Baso % (Auto) 0.7 % (0.0-1.8) 08/02/22 19:58 Lymph # (Auto) 0.7 K/mm3 (1.2-5.4) L 08/02/22 19:58 [place] # (Auto) 0.7 K/mm3 (0.0-0.8) 08/02/22 19:58 Eos # (Auto) 0.0 K/mm3 (0.0-0.4) 08/02/22 19:58 Baso # (Auto) 0.0 K/mm3 (0.0-0.1) 08/02/22 19:58 Seg Neutrophils % 74.2 % (40.0-70.0) H 08/02/22 19:58 Seg Neutrophils # 4.0 K/mm3 (1.8-7.7) 08/02/22 19:58 D-Dimer 138.01 ng/mlDDU (0-234) 08/04/22 07:59 Sodium 144 mmol/L (137-145) 08/03/22 04:19 Potassium 3.9 mmol/L (3.6-5.0) 08/03/22 04:19 Chloride 111.6 mmol/L (98-107) H 08/03/22 04:19 Carbon Dioxide 21 mmol/L (22-30) L 08/03/22 04:19 Anion Gap 15 mmol/L 08/03/22 04:19 BUN 5 mg/dL (9-20) L 08/03/22 04:19 Creatinine 0.8 mg/dL (0.8-1.3) 08/03/22 04:19 Estimated GFR > 60 ml/min 08/03/22 04:19 BUN/Creatinine Ratio 6 % 08/03/22 04:19 Glucose 86 mg/dL (75-100) 08/04/22 07:59 Lactic Acid 1.50 mmol/L (0.7-2.0) 08/03/22 04:19 Calcium 8.2 mg/dL (8.4-10.2) L 08/03/22 04:19 Ferritin 137.2 ng/mL (30.0-300.0) 08/04/22 07:59 Total Bilirubin 0.40 mg/dL (0.1-1.2) 08/02/22 19:58 AST 12 units/L (5-40) 08/02/22 19:58 ALT 7 units/L (7-56) 08/02/22 19:58 Alkaline Phosphatase 77 units/L (35-129) 08/02/22 19:58 Lactate Dehydrogenase 131 units/L (91-180) 08/04/22 07:59 C-Reactive Protein 1.80 mg/dL (0.00-1.30) H 08/04/22 07:59 Total Protein 6.7 g/dL (6.3-8.2) 08/02/22 19:58 Albumin 4.6 g/dL (3.9-5) 08/02/22 19:58 Albumin/Globulin Ratio 2.2 % 08/02/22 19:58 Vitamin B12 281.9 pg/mL (211-911) 08/05/22 08:08 Procalcitonin < 0.05 ng/mL (<0.15) 08/04/22 07:59 TSH 4.810 mlU/mL (0.270-4.200) H 08/05/22 08:08 Urine Color Yellow (Yellow) 08/02/22 Unknown Urine Turbidity Clear (Clear) 08/02/22 Unknown Ur Protein (Man) 1+ mg/dL (Negative) 08/02/22 Unknown Ur Ketones (Man) Negative (Negative) 08/02/22 Unknown Ur Nitrite (Man) Negative (Negative) 08/02/22 Unknown Ur Reducing Substances Not Reportable 08/02/22 Unknown Urine Ictotest Negative (Negative) 08/02/22 Unknown Leukocyte Esterase (Man) Negative (Negative) 08/02/22 Unknown Urine WBC (Auto) < 1.0 /HPF (0.0-6.0) 08/02/22 Unknown Urine RBC (Auto) < 1.0 /HPF (0.0-6.0) 08/02/22 Unknown Urine RBC (Manual) Negative (Negative) 08/02/22 Unknown Urine Mucus Few /HPF 08/02/22 Unknown SARS-CoV-2 (PCR) Positive (Negative) A 08/03/22 09:37 Microbiology: Microbiology 08/02/22 19:58 Peripheral/Venous Blood Culture - Preliminary NO GROWTH AFTER 72 HOURS 08/02/22 19:58 Peripheral/Venous Blood Culture - Preliminary NO GROWTH AFTER 72 HOURS Rodriguez/IV: Voiding Method Urinal Active Medications - Current Medications Current Medications: Generic Name Dose Route Start Last Admin Trade Name Freq PRN Reason Stop Dose Admin Acetaminophen 650 mg 08/02/22 22:42 08/03/22 20:31 Acetaminophen 325 Mg Tab PO 650 mg Q4H PRN Administration Pain MILD(1-3)/Fever >100.5/GARCÍA Gabapentin 100 mg 08/04/22 14:00 08/06/22 13:04 Gabapentin 100 Mg Cap PO 100 mg Q8HR HAILEY Administration Heparin Sodium (Porcine) 5,000 unit 08/03/22 06:00 08/06/22 13:05 Heparin 5,000 Unit/1 Ml Vial SUB-Q 5,000 unit Q8HR HAILEY Administration Sodium Chloride 1,000 mls @ 75 mls/hr 08/02/22 22:45 08/06/22 13:13 Nacl 0.9% 1000 Ml IV 75 mls/hr DIRECT HAILEY Administration Morphine Sulfate 2 mg 08/02/22 22:42 08/05/22 22:04 Morphine 2 Mg/1 Ml Inj IV 2 mg Q4H PRN Administration Pain, Moderate (4-6) Morphine Sulfate 4 mg 08/02/22 22:42 Morphine 4 Mg/1 Ml Inj IV Q4H PRN Pain , Severe (7-10) Ondansetron HCl 4 mg 08/02/22 22:42 Ondansetron 4 Mg/2 Ml Inj IV Q8H PRN Nausea And Vomiting Sodium Chloride 10 ml 08/03/22 10:00 08/06/22 10:00 Sodium Chloride 0.9% 10 Ml Flush Syringe IV 10 ml BID HAILEY Administration Sodium Chloride 10 ml 08/02/22 22:42 Sodium Chloride 0.9% 10 Ml Flush Syringe IV PRN PRN LINE FLUSH
--- NOTE | 2022-08-06 14:58 | Consultation ---
History of Present Illness Consult date: 08/06/22 Reason for Consult: Lower extremity weakness / MS; +COVID Chief complaint: Weakness / Numbness History of present illness: 31 yo male with RRMS who presents with generalized weakness with lower extremities more so affected than upper extremities with c/o numbness involving the arms. Notes subjective feeling of hot / cold. Workup has revealed the patient is positive for COVID-19. COVID-19 protocol prevents televideo evaluation. Past History Past Medical History: other (Multiple Sclerosis) Past Surgical History: No surgical history Social history: smoking (Current daily smoker) Family history: no significant family history Medications and Allergies Allergies Allergy/AdvReac Type Severity Reaction Status Date / Time No Known Allergies Allergy Unverified 04/01/22 06:04 Home Medications Medication Instructions Recorded Confirmed Last Taken Type Prednisone [predniSONE 10 mg 10 mg PO .TAPER 6 Days #1 tab 04/01/22 Unknown Rx (6-Day Pack, 21 Tabs)] Active Meds: Active Medications Acetaminophen (Acetaminophen 325 Mg Tab) 650 mg PO Q4H PRN PRN Reason: Pain MILD(1-3)/Fever >100.5/GARCÍA Last Admin: 08/03/22 20:31 Dose: 650 mg Gabapentin (Gabapentin 100 Mg Cap) 100 mg PO Q8HR [facility] Last Admin: 08/06/22 13:04 Dose: 100 mg Heparin Sodium (Porcine) (Heparin 5,000 Unit/1 Ml Vial) 5,000 unit SUB-Q Q8HR [facility] Last Admin: 08/06/22 13:05 Dose: 5,000 unit Sodium Chloride (Nacl 0.9% 1000 Ml) 1,000 mls @ 75 mls/hr IV DIRECT [facility] Last Admin: 08/06/22 13:13 Dose: 75 mls/hr Morphine Sulfate (Morphine 2 Mg/1 Ml Inj) 2 mg IV Q4H PRN PRN Reason: Pain, Moderate (4-6) Last Admin: 08/05/22 22:04 Dose: 2 mg Morphine Sulfate (Morphine 4 Mg/1 Ml Inj) 4 mg IV Q4H PRN PRN Reason: Pain , Severe (7-10) Ondansetron HCl (Ondansetron 4 Mg/2 Ml Inj) 4 mg IV Q8H PRN PRN Reason: Nausea And Vomiting Sodium Chloride (Sodium Chloride 0.9% 10 Ml Flush Syringe) 10 ml IV BID [facility] Last Admin: 08/06/22 10:00 Dose: 10 ml Sodium Chloride (Sodium Chloride 0.9% 10 Ml Flush Syringe) 10 ml IV PRN PRN PRN Reason: LINE FLUSH Physical Examination - Vital Signs Vital Signs: Vital Signs Temp Pulse Resp BP Pulse Ox 101.3 F H 67 18 140/81 99 08/02/22 18:39 08/02/22 18:39 08/02/22 18:39 08/02/22 18:39 08/02/22 18:39 - Physical Exam Narrative exam: Patient not seen via televideo due to COVID-19 protocol. Results - Laboratory Findings CBC and BMP: 08/02/22 19:58 08/04/22 07:59 Abnormal Lab Findings: Abnormal Labs 08/02/22 08/02/22 08/03/22 19:58 19:58 04:19 RBC 5.49 H MCV 70 L MCH 22 L MCHC 31 L RDW 15.9 H Lymph % (Auto) 12.6 L [place] % (Auto) 12.5 H Lymph # (Auto) 0.7 L Seg Neutrophils % 74.2 H Chloride 111.6 H Carbon Dioxide 21 L BUN 5 L 5 L Glucose 101 H 126 H Calcium 8.2 L C-Reactive Protein TSH SARS-CoV-2 (PCR) 08/03/22 08/04/22 08/05/22 09:37 07:59 08:08 RBC MCV MCH MCHC RDW Lymph % (Auto) [place] % (Auto) Lymph # (Auto) Seg Neutrophils % Chloride Carbon Dioxide BUN Glucose Calcium C-Reactive Protein 1.80 H TSH 4.810 H SARS-CoV-2 (PCR) Positive A Assessment and Plan 31 yo male with RRMS p/w weakness / paresthesias. 1. Recrudescence of MS - in the setting of underlying covid-19 infection; treatment of covid-19 per primary team; mri brain / cspine reveal no enhancing lesions, per report; awaiting mri t-spine; outpatient followup with neurology regarding use of long-term, disease modifying agents. 2. Generalized Weakness / Paresthesias - pt/ot evaluation/monitoring; recheck b12 and if trending down; consider supplementation. 3. Covid-19 - management per primary team. 4. No further acute neurologic workup if mri imaging reveals no acute findings. Aaron Carlos MD Neurology
--- NOTE | 2022-08-06 15:42 | Magnetic Resonance Report ---
MR brain wo/w con INDICATION / CLINICAL INFORMATION: 31 years Male; Lower Extremity weakness, HO multiple sclerosis. TECHNIQUE: Multiplanar, multisequence MR images of the brain were obtained. COMPARISON: None available. FINDINGS: BRAIN / INTRACRANIAL CONTENTS: No acute hemorrhage, mass effect, midline shift, hydrocephalus, or acu te, large territorial infarct. No chronic infarct or atrophy. Significant white matter disease seen in the cerebral hemispheres, as well as the brainstem and white matter of the cerebellar hemispheres, to some degree. A few of these findings demonstrate increased signal on diffusion imaging, most likely related to T2 shine through artifact. No definitive signs of diffusion signal abnormality or abnormal enhancement seen to suggest acute demyelination. I see no signs of abnormal enhancement on whole brain imaging, following contrast administration. CRANIOCERVICAL JUNCTION: No significant abnormality. VASCULAR FLOW-VOIDS: No significant abnormality. ORBITS: No significant abnormality of visualized orbits. SINUSES / MASTOIDS: Mild to moderate mucosal thickening in the ethmoids and left maxillary antrum. ADDITIONAL FINDINGS: None. IMPRESSION: 1. No focal mass, hemorrhage, hydrocephalus, or acute ischemia. 2. Significant white matter disease, consistent with patient's history of multiple sclerosis. No defi nitive signs of acute demyelination appreciated Signer Name: Dawood Ko MD, III Signed: 08/06/2022 3:38 PM Workstation Name: [id number]
--- NOTE | 2022-08-06 15:47 | Magnetic Resonance Report ---
MR cervical spine wo/w con INDICATION / CLINICAL INFORMATION: 31 years Male; Lower Extremity weakness, HO multiple sclerosis. TECHNIQUE: Multisequence, multiplanar images of the cervical spine were obtained. COMPARISON: None available. FINDINGS: CRANIOCERVICAL JUNCTION:No significant abnormality. ALIGNMENT: No significant abnormality. VERTEBRAE:Grossly normal marrow signal and vertebral body height for age. VISUALIZED SPINAL CORD: Fairly extensive white matter lesions are seen throughout the cervical cord. I see no signs of abnormal enhancement to suggest acute demyelination INTERVERTEBRAL DISCS: Multilevel disc desiccation noted. ISSZE-XY-RILSY ANALYSIS: C2-3: No significant abnormality. C3-4: No significant abnormality. C4-5: Broad-based right paracentral disc protrusion. There is slight encroachment upon the right ante rior hemicord without significant sequela. Moderate foraminal narrowing on the right from disc diseas e and/or uncinate hypertrophy. Mild to moderate on the left. Findings may affect the C5 nerves. C5-6: Small posterocentral disc protrusion. Mild foraminal narrowing bilaterally from uncinate hypert rophy. C6-7: Perhaps minimal disc bulge. Mild foraminal narrowing bilaterally from uncinate hypertrophy C7-T1: Mild to moderate foraminal narrowing on the left and mild on the right from uncinate and facet hypertrophy. PARASPINAL SOFT TISSUES: No significant abnormality. ADDITIONAL FINDINGS: Prominent nodule is seen in the left thyroid lobe measuring up to 4 cm in maximu m dimension. Please see below. IMPRESSION: 1. Findings compatible with patient's history of multiple sclerosis-multiple cord lesions seen. No de finitive signs of acute demyelination appreciated. 2. Relatively mild degenerative changes of the cervical, as described above. 3. Left thyroid lobe nodule seen. Please see below. INCIDENTAL THYROID NODULE RECOMMENDATION RECOMMENDATION: Dedicated thyroid ultrasound. Nonpalpable nodules detected on US or other anatomic imaging studies are termed incidentally discover ed nodules or incidentalomas. Nonpalpable nodules have the same risk of malignancy as palpable nodule s with the same size. Generally, only nodules >1 cm should be evaluated, since they have a greater po tential to be clinically significant cancers. (FABIOLA, 2009). Follow up for incidental thyroid nodules <1 cm is not recommended. Diagnostic thyroid ultrasound is recommended only if the patient meets the following criteria: (1) < 35 years of age with normal life expectancy and nodule >= 1 cm. (2) >= 35 years of age with normal life expectancy and nodule >= 1.5 cm. ACR Ultrasound for incidental thyroid nodules: [email or web address] Signer Name: Dawood Ko MD, III Signed: 08/06/2022 3:43 PM Workstation Name: [email or web address] [id number]
[2022-08-06] MEDS ORDERED: traMADol 50 MG TAB PO PRN (22:25)
[2022-08-07] MEDS: GABAPENTIN 100 MG CAP PO SCH ×3 (06:08→22:57)
[2022-08-07] MEDS: HEPARIN 5,000 UNIT/1 ML VIAL SUB-Q SCH ×3 (06:08→22:57)
--- NOTE | 2022-08-07 11:50 | Progress Note ---
Assessment and Plan Assessment and plan: 31-year-old male with known history of relapsing and remitting multiple sclerosis presenting to the emergency room complaining of generalized body aches and pain over the last 24 hours. Patient states he has been having progressive weakness and numbness in his lower extremities and occasionally in his hands. He has had urinary incontinence but denies any fecal incontinence. Does not follow-up any neurologist on outpatient basis at this time and he has not been on medication for over a year. Work-up in the emergency room showed unremarkable chest x-ray. Patient was evaluated by the neurologist and recommendation was to check MRI of the brain, cervical spine thoracic and lumbosacral spine. Steroid not recommended at this time. Patient also tested positive for COVID-19 on 08/03/2022, he is fully vaccinated against COVID-19. #COVID-19 infection Patient currently saturating well on room air; therefore, patient does not require steroid administration for COVID-19 infection or remdesivir Continue airborne and droplet precautions #Multiple Sclerosis exacerbation #Bladder incontinence #Peripheral neuropathy Currently pending MRI thoracic spine/lumbar spine MRI brain and cervical spine (08/06/2022) revealing "findings compatible with the patient's history of multiple sclerosismultiple cord lesions seen. No definitive signs of acute demyelination appreciated. Left thyroid lobe noduleincidentaloma". Neurology consulted; appreciate recs. Currently describing recrudescence of multiple sclerosis. Currently holding on steroids for multiple sclerosis exacerbation. Awaiting neurology's recommendations about possible initiation. Continue Neurontin Physical therapy recommending subacute rehab. Patient agrees with recommendation. Case management made aware to initiate authorizations. Continue Rodriguez #Advanced care planning -Disease education conducted, care plan discussed, diagnoses discussed, prognosis discussed, and patient acknowledges understanding with care plan -Time: +30 min #Discharge planning - Patient is pending MRI thoracic and lumbar spine. Subacute rehab authorization. - Case management has been made aware. - Discharge is tentatively 48-72 hours Disposition Plan: Continue medical management Total Time Spent with Patient (Minutes): 45 minutes History Interval history: No acute events overnight. Hospitalist Physical - Constitutional Vitals: Temp Pulse Resp BP Pulse Ox 98.3 F 48 L 17 101/55 100 08/07/22 06:13 08/07/22 06:13 08/07/22 06:13 08/07/22 06:13 08/07/22 06:13 General appearance: Present: no acute distress, well-nourished - EENT Eyes: Present: PERRL, EOM intact ENT: hearing intact, clear oral mucosa, dentition normal - Neck Neck: Present: supple, normal ROM - Respiratory Respiratory effort: normal Respiratory: bilateral: CTA - Cardiovascular Rhythm: regular Heart Sounds: Present: S1 & S2 - Extremities Extremities: no ischemia, pulses intact, pulses symmetrical, No edema, normal temperature, normal color Peripheral Pulses: within normal limits - Abdominal General gastrointestinal: soft, non-tender, non-distended, normal bowel sounds - Integumentary Integumentary: Present: clear, warm, dry - Psychiatric Psychiatric: appropriate mood/affect, intact judgment & insight, memory intact, cooperative - Neurologic Neurologic: CNII-XII intact, moves all extremities, other (3/5 strength of right lower extremity and 4/5 strength of left lower extremity) - Allied Health Allied health notes reviewed: nursing, PT Results - Labs CBC & Chem 7: 08/02/22 19:58 08/04/22 07:59 Labs: Laboratory Last Values WBC 5.4 K/mm3 (4.5-11.0) 08/02/22 19:58 RBC 5.49 M/mm3 (3.65-5.03) H 08/02/22 19:58 Hgb 12.0 gm/dl (11.8-15.2) 08/02/22 19:58 Hct 38.4 % (35.5-45.6) 08/02/22 19:58 MCV 70 fl (84-94) L 08/02/22 19:58 MCH 22 pg (28-32) L 08/02/22 19:58 MCHC 31 % (32-34) L 08/02/22 19:58 RDW 15.9 % (13.2-15.2) H 08/02/22 19:58 Plt Count 246 K/mm3 (140-440) 08/02/22 19:58 Lymph % (Auto) 12.6 % (13.4-35.0) L 08/02/22 19:58 [place] % (Auto) 12.5 % (0.0-7.3) H 08/02/22 19:58 Eos % (Auto) 0.0 % (0.0-4.3) 08/02/22 19:58 Baso % (Auto) 0.7 % (0.0-1.8) 08/02/22 19:58 Lymph # (Auto) 0.7 K/mm3 (1.2-5.4) L 08/02/22 19:58 [place] # (Auto) 0.7 K/mm3 (0.0-0.8) 08/02/22 19:58 Eos # (Auto) 0.0 K/mm3 (0.0-0.4) 08/02/22 19:58 Baso # (Auto) 0.0 K/mm3 (0.0-0.1) 08/02/22 19:58 Seg Neutrophils % 74.2 % (40.0-70.0) H 08/02/22 19:58 Seg Neutrophils # 4.0 K/mm3 (1.8-7.7) 08/02/22 19:58 D-Dimer 138.01 ng/mlDDU (0-234) 08/04/22 07:59 Sodium 144 mmol/L (137-145) 08/03/22 04:19 Potassium 3.9 mmol/L (3.6-5.0) 08/03/22 04:19 Chloride 111.6 mmol/L (98-107) H 08/03/22 04:19 Carbon Dioxide 21 mmol/L (22-30) L 08/03/22 04:19 Anion Gap 15 mmol/L 08/03/22 04:19 BUN 5 mg/dL (9-20) L 08/03/22 04:19 Creatinine 0.8 mg/dL (0.8-1.3) 08/03/22 04:19 Estimated GFR > 60 ml/min 08/03/22 04:19 BUN/Creatinine Ratio 6 % 08/03/22 04:19 Glucose 86 mg/dL (75-100) 08/04/22 07:59 Lactic Acid 1.50 mmol/L (0.7-2.0) 08/03/22 04:19 Calcium 8.2 mg/dL (8.4-10.2) L 08/03/22 04:19 Ferritin 137.2 ng/mL (30.0-300.0) 08/04/22 07:59 Total Bilirubin 0.40 mg/dL (0.1-1.2) 08/02/22 19:58 AST 12 units/L (5-40) 08/02/22 19:58 ALT 7 units/L (7-56) 08/02/22 19:58 Alkaline Phosphatase 77 units/L (35-129) 08/02/22 19:58 Lactate Dehydrogenase 131 units/L (91-180) 08/04/22 07:59 C-Reactive Protein 1.80 mg/dL (0.00-1.30) H 08/04/22 07:59 Total Protein 6.7 g/dL (6.3-8.2) 08/02/22 19:58 Albumin 4.6 g/dL (3.9-5) 08/02/22 19:58 Albumin/Globulin Ratio 2.2 % 08/02/22 19:58 Vitamin B12 281.9 pg/mL (211-911) 08/05/22 08:08 Procalcitonin < 0.05 ng/mL (<0.15) 08/04/22 07:59 TSH 4.810 mlU/mL (0.270-4.200) H 08/05/22 08:08 Urine Color Yellow (Yellow) 08/02/22 Unknown Urine Turbidity Clear (Clear) 08/02/22 Unknown Ur Protein (Man) 1+ mg/dL (Negative) 08/02/22 Unknown Ur Ketones (Man) Negative (Negative) 08/02/22 Unknown Ur Nitrite (Man) Negative (Negative) 08/02/22 Unknown Ur Reducing Substances Not Reportable 08/02/22 Unknown Urine Ictotest Negative (Negative) 08/02/22 Unknown Leukocyte Esterase (Man) Negative (Negative) 08/02/22 Unknown Urine WBC (Auto) < 1.0 /HPF (0.0-6.0) 08/02/22 Unknown Urine RBC (Auto) < 1.0 /HPF (0.0-6.0) 08/02/22 Unknown Urine RBC (Manual) Negative (Negative) 08/02/22 Unknown Urine Mucus Few /HPF 08/02/22 Unknown SARS-CoV-2 (PCR) Positive (Negative) A 08/03/22 09:37 Microbiology: Microbiology 08/02/22 19:58 Peripheral/Venous Blood Culture - Preliminary NO GROWTH AFTER 4 DAYS 08/02/22 19:58 Peripheral/Venous Blood Culture - Preliminary NO GROWTH AFTER 4 DAYS Rodriguez/IV: Voiding Method Urinal Active Medications - Current Medications Current Medications: Generic Name Dose Route Start Last Admin Trade Name Freq PRN Reason Stop Dose Admin Acetaminophen 650 mg 08/02/22 22:42 08/03/22 20:31 Acetaminophen 325 Mg Tab PO 650 mg Q4H PRN Administration Pain MILD(1-3)/Fever >100.5/GARCÍA Gabapentin 100 mg 08/04/22 14:00 08/07/22 06:08 Gabapentin 100 Mg Cap PO 100 mg Q8HR HAILEY Administration Heparin Sodium (Porcine) 5,000 unit 08/03/22 06:00 08/07/22 06:08 Heparin 5,000 Unit/1 Ml Vial SUB-Q 5,000 unit Q8HR HAILEY Administration Sodium Chloride 1,000 mls @ 75 mls/hr 08/02/22 22:45 08/06/22 13:13 Nacl 0.9% 1000 Ml IV 75 mls/hr DIRECT HAILEY Administration Morphine Sulfate 2 mg 08/02/22 22:42 08/05/22 22:04 Morphine 2 Mg/1 Ml Inj IV 2 mg Q4H PRN Administration Pain, Moderate (4-6) Morphine Sulfate 4 mg 08/02/22 22:42 Morphine 4 Mg/1 Ml Inj IV Q4H PRN Pain , Severe (7-10) Ondansetron HCl 4 mg 08/02/22 22:42 Ondansetron 4 Mg/2 Ml Inj IV Q8H PRN Nausea And Vomiting Sodium Chloride 10 ml 08/03/22 10:00 08/06/22 22:05 Sodium Chloride 0.9% 10 Ml Flush Syringe IV 10 ml BID HAILEY Administration Sodium Chloride 10 ml 08/02/22 22:42 Sodium Chloride 0.9% 10 Ml Flush Syringe IV PRN PRN LINE FLUSH Tramadol HCl 50 mg 08/06/22 22:25 08/06/22 23:51 Tramadol 50 Mg Tab PO 50 mg Q8H PRN Administration Pain, Moderate (4-6)
[2022-08-08] MEDS: HEPARIN 5,000 UNIT/1 ML VIAL SUB-Q SCH ×3 (05:41→22:28)
[2022-08-08] MEDS: GABAPENTIN 100 MG CAP PO SCH ×3 (05:41→22:28)
--- NOTE | 2022-08-08 11:14 | Magnetic Resonance Report ---
MR lumbar spine wo/w con INDICATION / CLINICAL INFORMATION: 31 years Male; Lower Extremity weakness, HO multiple sclerosis PATIENT MOTION, BEST POSSIBLE EXAM, RE PATED SCANS.. TECHNIQUE: Multisequence, multiplanar images of the lumbar spine were obtained. COMPARISON: None available. FINDINGS: ALIGNMENT: There is no significant spondylolisthesis of the lumbar spine. VERTEBRAE:There is milder disc desiccation and disc space narrowing at L4-5 and L5-S1. There is no si gnificant edema of the lumbar vertebral bodies at. VISUALIZED SPINAL CORD: The motion degrades image quality. However, the distalmost spinal cord appear s to demonstrate appropriate morphology and terminates at T12-L1. [id number] ANALYSIS: L1-2: No significant abnormality. L2-3: No significant abnormality. L3-4: No significant abnormality. L4-5: There is a central disc protrusion which mildly deforms the thecal sac. There is no significant neural foraminal narrowing L5-S1: This broad-based right-sided disc bulge which encroaches on the right lateral recess and proxi mal right S1 nerve root sheath at. Is also mild foraminal narrowing bilaterally. PARASPINAL SOFT TISSUES: No significant abnormality. ADDITIONAL FINDINGS: No epidural collections are identified. The motion degrades image quality, parti cularly on the postcontrast sequences. However, no definitive intradural enhancing lesions are apprec iated. IMPRESSION: 1. There is a central disc protrusion at L4-5 which mildly deforms the ventral thecal sac. 2. There is a broad-based right sided at disc bulge L5-S1 which mildly encroaches on the right latera l recess and proximal right S1 nerve root sheath. There is mild neural foraminal narrowing bilaterall y. Signer Name: Danny Reyes MD Signed: 08/08/2022 11:10 AM Workstation Name: [employer]
--- NOTE | 2022-08-08 11:21 | Magnetic Resonance Report ---
MRI THORACIC SPINE with and without IV contrast. INDICATION / CLINICAL INFORMATION: Lower Extremity weakness, HO multiple sclerosis. TECHNIQUE: Multisequence, multiplanar images of the thoracic spine were obtained. COMPARISON: None available. FINDINGS: ALIGNMENT: There is no significant spondylolisthesis or scoliosis of the thoracic spine at. VERTEBRAE:Mild endplate changes and Schmorl's nodes involving the lower thoracic levels at. However, there is no significant edema or evidence of recent compression fracture. VISUALIZED SPINAL CORD: The motion degrades image quality at. However, there is a focus of increased STIR signal along the right lateral cord at inferior T8 level measuring 0.9 mm longitudinally at. A s imilar focus is seen on the right at the inferior T9 level. The findings be most consistent with demy elination given the patient's history at. There is suggestion of more subtle focus within the left co rd at T4-L5 level measuring couple millimeters transversely by 5 mm longitudinally at. There also jono ear to be more subtle central sulci at T7 level. No definitive corresponding enhancement is seen on t he postcontrast imaging. There are also appear to be ill-defined foci involving the included lower ce rvical spinal cord. INTERVERTEBRAL DISCS: The intervertebral disc spaces appear fairly well-maintained without disc protr usion or significant spinal stenosis. The neural foramen appear patent. PARASPINAL SOFT TISSUES: There is a lesion within the visualized left thyroid gland which is discusse d on the previous MR cervical spine ADDITIONAL FINDINGS: No epidural collections are identified. IMPRESSION: 1. There are few and scattered hyperintense foci involving thoracic spinal cord as detailed above mos t consistent with demyelination given the patient's history. 2. There is no disc protrusion or significant stenosis involving thoracic spine. Signer Name: Danny Reyes MD Signed: 08/08/2022 11:17 AM Workstation Name: [email or web address]
--- NOTE | 2022-08-08 15:00 | Progress Note ---
Assessment and Plan Assessment and plan: 31-year-old male with known history of relapsing and remitting multiple sclerosis presenting to the emergency room complaining of generalized body aches and pain over the last 24 hours. Patient states he has been having progressive weakness and numbness in his lower extremities and occasionally in his hands. He has had urinary incontinence but denies any fecal incontinence. Does not follow-up any neurologist on outpatient basis at this time and he has not been on medication for over a year. Work-up in the emergency room showed unremarkable chest x-ray. Patient was evaluated by the neurologist and recommendation was to check MRI of the brain, cervical spine thoracic and lumbosacral spine. Steroid not recommended at this time. Patient also tested positive for COVID-19 on 08/03/2022, he is fully vaccinated against COVID-19. #Asymptomatic COVID-19 infection Patient currently saturating well on room air; therefore, patient does not require steroid administration for COVID-19 infection or remdesivir Continue airborne and droplet precautions #Multiple Sclerosis exacerbation #Bladder incontinence #Peripheral neuropathy MRI brain and cervical spine (08/06/2022) revealing "findings compatible with the patient's history of multiple sclerosismultiple cord lesions seen. No definitive signs of acute demyelination appreciated. Left thyroid lobe noduleincidentaloma". MRI thoracic and lumbar spine (08/08/2022) revealing scattered hyperintense foci involving thoracic spinal cord most consistent with demyelination. No disc protrusion or significant stenosis involving the thoracic spine. Central disc protrusion at [id number] mildly deforms the ventral thecal sac. Broad-based right-sided disc bulge at L5-S1 which mildly encroaches on the right lateral recess and proximal right S1 nerve root sheath. There is mild neural foraminal narrowing bilaterally. Neurology consulted; appreciate recs. Currently describing recrudescence of multiple sclerosis. Currently holding on steroids for multiple sclerosis exacerbation. Awaiting neurology's recommendations about possible initiation. Continue Neurontin Physical therapy recommending subacute rehab. Patient agrees with recommendation. Case management made aware to initiate authorizations. Continue Rodriguez #Advanced care planning -Disease education conducted, care plan discussed, diagnoses discussed, prognosis discussed, and patient acknowledges understanding with care plan -Time: +30 min #Discharge planning - Patient is pending Subacute rehab authorization. - Case management has been made aware. - Discharge is tentatively 48-72 hours Disposition Plan: Continue medical management Total Time Spent with Patient (Minutes): 45 min History Interval history: No acute events overnight. Hospitalist Physical - Constitutional Vitals: Temp Pulse Resp BP Pulse Ox 97.8 F 54 L 20 105/63 98 08/08/22 10:49 08/08/22 10:49 08/08/22 10:49 08/08/22 10:49 08/08/22 11:56 General appearance: Present: no acute distress, well-nourished - EENT Eyes: Present: PERRL, EOM intact ENT: hearing intact, clear oral mucosa, dentition normal - Neck Neck: Present: supple, normal ROM - Respiratory Respiratory effort: normal Respiratory: bilateral: CTA - Cardiovascular Rhythm: regular Heart Sounds: Present: S1 & S2 - Extremities Extremities: no ischemia, pulses intact, pulses symmetrical, No edema, normal temperature, normal color Peripheral Pulses: within normal limits - Abdominal General gastrointestinal: soft, non-tender, non-distended, normal bowel sounds - Integumentary Integumentary: Present: clear, warm, dry - Psychiatric Psychiatric: appropriate mood/affect, intact judgment & insight, memory intact, cooperative - Neurologic Neurologic: CNII-XII intact, moves all extremities, other (3/5 strength of right lower extremity; 4/5 strength of left lower extremity) - Allied Health Allied health notes reviewed: nursing, case management Results - Labs CBC & Chem 7: 08/02/22 19:58 08/04/22 07:59 Labs: Laboratory Last Values WBC 5.4 K/mm3 (4.5-11.0) 08/02/22 19:58 RBC 5.49 M/mm3 (3.65-5.03) H 08/02/22 19:58 Hgb 12.0 gm/dl (11.8-15.2) 08/02/22 19:58 Hct 38.4 % (35.5-45.6) 08/02/22 19:58 MCV 70 fl (84-94) L 08/02/22 19:58 MCH 22 pg (28-32) L 08/02/22 19:58 MCHC 31 % (32-34) L 08/02/22 19:58 RDW 15.9 % (13.2-15.2) H 08/02/22 19:58 Plt Count 246 K/mm3 (140-440) 08/02/22 19:58 Lymph % (Auto) 12.6 % (13.4-35.0) L 08/02/22 19:58 [place] % (Auto) 12.5 % (0.0-7.3) H 08/02/22 19:58 Eos % (Auto) 0.0 % (0.0-4.3) 08/02/22 19:58 Baso % (Auto) 0.7 % (0.0-1.8) 08/02/22 19:58 Lymph # (Auto) 0.7 K/mm3 (1.2-5.4) L 08/02/22 19:58 [place] # (Auto) 0.7 K/mm3 (0.0-0.8) 08/02/22 19:58 Eos # (Auto) 0.0 K/mm3 (0.0-0.4) 08/02/22 19:58 Baso # (Auto) 0.0 K/mm3 (0.0-0.1) 08/02/22 19:58 Seg Neutrophils % 74.2 % (40.0-70.0) H 08/02/22 19:58 Seg Neutrophils # 4.0 K/mm3 (1.8-7.7) 08/02/22 19:58 D-Dimer 138.01 ng/mlDDU (0-234) 08/04/22 07:59 Sodium 144 mmol/L (137-145) 08/03/22 04:19 Potassium 3.9 mmol/L (3.6-5.0) 08/03/22 04:19 Chloride 111.6 mmol/L (98-107) H 08/03/22 04:19 Carbon Dioxide 21 mmol/L (22-30) L 08/03/22 04:19 Anion Gap 15 mmol/L 08/03/22 04:19 BUN 5 mg/dL (9-20) L 08/03/22 04:19 Creatinine 0.8 mg/dL (0.8-1.3) 08/03/22 04:19 Estimated GFR > 60 ml/min 08/03/22 04:19 BUN/Creatinine Ratio 6 % 08/03/22 04:19 Glucose 86 mg/dL (75-100) 08/04/22 07:59 Lactic Acid 1.50 mmol/L (0.7-2.0) 08/03/22 04:19 Calcium 8.2 mg/dL (8.4-10.2) L 08/03/22 04:19 Ferritin 137.2 ng/mL (30.0-300.0) 08/04/22 07:59 Total Bilirubin 0.40 mg/dL (0.1-1.2) 08/02/22 19:58 AST 12 units/L (5-40) 08/02/22 19:58 ALT 7 units/L (7-56) 08/02/22 19:58 Alkaline Phosphatase 77 units/L (35-129) 08/02/22 19:58 Lactate Dehydrogenase 131 units/L (91-180) 08/04/22 07:59 C-Reactive Protein 1.80 mg/dL (0.00-1.30) H 08/04/22 07:59 Total Protein 6.7 g/dL (6.3-8.2) 08/02/22 19:58 Albumin 4.6 g/dL (3.9-5) 08/02/22 19:58 Albumin/Globulin Ratio 2.2 % 08/02/22 19:58 Vitamin B12 281.9 pg/mL (211-911) 08/05/22 08:08 Procalcitonin < 0.05 ng/mL (<0.15) 08/04/22 07:59 TSH 4.810 mlU/mL (0.270-4.200) H 08/05/22 08:08 Urine Color Yellow (Yellow) 08/02/22 Unknown Urine Turbidity Clear (Clear) 08/02/22 Unknown Ur Protein (Man) 1+ mg/dL (Negative) 08/02/22 Unknown Ur Ketones (Man) Negative (Negative) 08/02/22 Unknown Ur Nitrite (Man) Negative (Negative) 08/02/22 Unknown Ur Reducing Substances Not Reportable 08/02/22 Unknown Urine Ictotest Negative (Negative) 08/02/22 Unknown Leukocyte Esterase (Man) Negative (Negative) 08/02/22 Unknown Urine WBC (Auto) < 1.0 /HPF (0.0-6.0) 08/02/22 Unknown Urine RBC (Auto) < 1.0 /HPF (0.0-6.0) 08/02/22 Unknown Urine RBC (Manual) Negative (Negative) 08/02/22 Unknown Urine Mucus Few /HPF 08/02/22 Unknown SARS-CoV-2 (PCR) Positive (Negative) A 08/03/22 09:37 Microbiology: Microbiology 08/02/22 19:58 Peripheral/Venous Blood Culture - Final NO GROWTH AFTER 5 DAYS 08/02/22 19:58 Peripheral/Venous Blood Culture - Final NO GROWTH AFTER 5 DAYS Rodriguez/IV: Voiding Method Urinal Active Medications - Current Medications Current Medications: Generic Name Dose Route Start Last Admin Trade Name Freq PRN Reason Stop Dose Admin Acetaminophen 650 mg 08/02/22 22:42 08/03/22 20:31 Acetaminophen 325 Mg Tab PO 650 mg Q4H PRN Administration Pain MILD(1-3)/Fever >100.5/GARCÍA Gabapentin 100 mg 08/04/22 14:00 08/08/22 13:07 Gabapentin 100 Mg Cap PO 100 mg Q8HR HAILEY Administration Heparin Sodium (Porcine) 5,000 unit 08/03/22 06:00 08/08/22 13:07 Heparin 5,000 Unit/1 Ml Vial SUB-Q 5,000 unit Q8HR HAILEY Administration Morphine Sulfate 2 mg 08/02/22 22:42 08/05/22 22:04 Morphine 2 Mg/1 Ml Inj IV 2 mg Q4H PRN Administration Pain, Moderate (4-6) Morphine Sulfate 4 mg 08/02/22 22:42 Morphine 4 Mg/1 Ml Inj IV Q4H PRN Pain , Severe (7-10) Ondansetron HCl 4 mg 08/02/22 22:42 Ondansetron 4 Mg/2 Ml Inj IV Q8H PRN Nausea And Vomiting Sodium Chloride 10 ml 08/03/22 10:00 08/08/22 13:08 Sodium Chloride 0.9% 10 Ml Flush Syringe IV 10 ml BID HAILEY Administration Sodium Chloride 10 ml 08/02/22 22:42 Sodium Chloride 0.9% 10 Ml Flush Syringe IV PRN PRN LINE FLUSH Tramadol HCl 50 mg 08/06/22 22:25 08/06/22 23:51 Tramadol 50 Mg Tab PO 50 mg Q8H PRN Administration Pain, Moderate (4-6)
[2022-08-09] MEDS: HEPARIN 5,000 UNIT/1 ML VIAL SUB-Q SCH ×3 (05:54→23:31)
[2022-08-09] MEDS: GABAPENTIN 100 MG CAP PO SCH ×3 (05:54→23:31)
--- NOTE | 2022-08-09 16:04 | Progress Note ---
Assessment and Plan Assessment and plan: 31-year-old male with known history of relapsing and remitting multiple sclerosis presenting to the emergency room complaining of generalized body aches and pain over the last 24 hours. Patient states he has been having progressive weakness and numbness in his lower extremities and occasionally in his hands. He has had urinary incontinence but denies any fecal incontinence. Does not follow-up any neurologist on outpatient basis at this time and he has not been on medication for over a year. Work-up in the emergency room showed unremarkable chest x-ray. Patient was evaluated by the neurologist and recommendation was to check MRI of the brain, cervical spine thoracic and lumbosacral spine. Steroid not recommended at this time. Patient also tested positive for COVID-19 on 08/03/2022, he is fully vaccinated against COVID-19. #Asymptomatic COVID-19 infection Patient currently saturating well on room air; therefore, patient does not require steroid administration for COVID-19 infection or remdesivir Continue airborne and droplet precautions #Multiple Sclerosis exacerbation #Bladder incontinence #Peripheral neuropathy MRI brain and cervical spine (08/06/2022) revealing "findings compatible with the patient's history of multiple sclerosismultiple cord lesions seen. No definitive signs of acute demyelination appreciated. Left thyroid lobe noduleincidentaloma". MRI thoracic and lumbar spine (08/08/2022) revealing scattered hyperintense foci involving thoracic spinal cord most consistent with demyelination. No disc protrusion or significant stenosis involving the thoracic spine. Central disc protrusion at [id number] mildly deforms the ventral thecal sac. Broad-based right-sided disc bulge at L5-S1 which mildly encroaches on the right lateral recess and proximal right S1 nerve root sheath. There is mild neural foraminal narrowing bilaterally. Neurology consulted; appreciate recs. Currently describing recrudescence of multiple sclerosis. Currently holding on steroids for multiple sclerosis exacerbation. Awaiting neurology's recommendations about possible initiation. Continue Neurontin Physical therapy recommending subacute rehab. Patient agrees with recommendation. Case management made aware to initiate authorizations. Continue Rodriguez #Advanced care planning -Disease education conducted, care plan discussed, diagnoses discussed, prognosis discussed, and patient acknowledges understanding with care plan -Time: +30 min #Discharge planning - Patient is pending Subacute rehab authorization. - Case management has been made aware. - Discharge is tentatively 48-72 hours Disposition Plan: Pending subacute rehab authorization Total Time Spent with Patient (Minutes): 45 minutes History Interval history: No acute events overnight. Hospitalist Physical - Constitutional Vitals: Temp Pulse Resp BP Pulse Ox 97.9 F 54 L 20 112/68 98 08/09/22 11:07 08/09/22 11:07 08/09/22 11:07 08/09/22 11:07 08/09/22 11:07 General appearance: Present: no acute distress, well-nourished - EENT Eyes: Present: PERRL, EOM intact ENT: hearing intact, clear oral mucosa, dentition normal - Neck Neck: Present: supple, normal ROM - Respiratory Respiratory effort: normal Respiratory: bilateral: CTA - Cardiovascular Rhythm: regular Heart Sounds: Present: S1 & S2 - Extremities Extremities: no ischemia, pulses intact, pulses symmetrical, No edema, normal temperature, normal color Peripheral Pulses: within normal limits - Abdominal General gastrointestinal: soft, non-tender, non-distended, normal bowel sounds - Integumentary Integumentary: Present: clear, warm, dry - Psychiatric Psychiatric: appropriate mood/affect, intact judgment & insight, memory intact, cooperative - Neurologic Neurologic: CNII-XII intact, moves all extremities, other (3/5 strength of right lower extremity and 4/5 strength of left lower extremity) - Allied Health Allied health notes reviewed: nursing Results - Labs CBC & Chem 7: 08/02/22 19:58 08/04/22 07:59 Labs: Laboratory Last Values WBC 5.4 K/mm3 (4.5-11.0) 08/02/22 19:58 RBC 5.49 M/mm3 (3.65-5.03) H 08/02/22 19:58 Hgb 12.0 gm/dl (11.8-15.2) 08/02/22 19:58 Hct 38.4 % (35.5-45.6) 08/02/22 19:58 MCV 70 fl (84-94) L 08/02/22 19:58 MCH 22 pg (28-32) L 08/02/22 19:58 MCHC 31 % (32-34) L 08/02/22 19:58 RDW 15.9 % (13.2-15.2) H 08/02/22 19:58 Plt Count 246 K/mm3 (140-440) 08/02/22 19:58 Lymph % (Auto) 12.6 % (13.4-35.0) L 08/02/22 19:58 [place] % (Auto) 12.5 % (0.0-7.3) H 08/02/22 19:58 Eos % (Auto) 0.0 % (0.0-4.3) 08/02/22 19:58 Baso % (Auto) 0.7 % (0.0-1.8) 08/02/22 19:58 Lymph # (Auto) 0.7 K/mm3 (1.2-5.4) L 08/02/22 19:58 [place] # (Auto) 0.7 K/mm3 (0.0-0.8) 08/02/22 19:58 Eos # (Auto) 0.0 K/mm3 (0.0-0.4) 08/02/22 19:58 Baso # (Auto) 0.0 K/mm3 (0.0-0.1) 08/02/22 19:58 Seg Neutrophils % 74.2 % (40.0-70.0) H 08/02/22 19:58 Seg Neutrophils # 4.0 K/mm3 (1.8-7.7) 08/02/22 19:58 D-Dimer 138.01 ng/mlDDU (0-234) 08/04/22 07:59 Sodium 144 mmol/L (137-145) 08/03/22 04:19 Potassium 3.9 mmol/L (3.6-5.0) 08/03/22 04:19 Chloride 111.6 mmol/L (98-107) H 08/03/22 04:19 Carbon Dioxide 21 mmol/L (22-30) L 08/03/22 04:19 Anion Gap 15 mmol/L 08/03/22 04:19 BUN 5 mg/dL (9-20) L 08/03/22 04:19 Creatinine 0.8 mg/dL (0.8-1.3) 08/03/22 04:19 Estimated GFR > 60 ml/min 08/03/22 04:19 BUN/Creatinine Ratio 6 % 08/03/22 04:19 Glucose 86 mg/dL (75-100) 08/04/22 07:59 Lactic Acid 1.50 mmol/L (0.7-2.0) 08/03/22 04:19 Calcium 8.2 mg/dL (8.4-10.2) L 08/03/22 04:19 Ferritin 137.2 ng/mL (30.0-300.0) 08/04/22 07:59 Total Bilirubin 0.40 mg/dL (0.1-1.2) 08/02/22 19:58 AST 12 units/L (5-40) 08/02/22 19:58 ALT 7 units/L (7-56) 08/02/22 19:58 Alkaline Phosphatase 77 units/L (35-129) 08/02/22 19:58 Lactate Dehydrogenase 131 units/L (91-180) 08/04/22 07:59 C-Reactive Protein 1.80 mg/dL (0.00-1.30) H 08/04/22 07:59 Total Protein 6.7 g/dL (6.3-8.2) 08/02/22 19:58 Albumin 4.6 g/dL (3.9-5) 08/02/22 19:58 Albumin/Globulin Ratio 2.2 % 08/02/22 19:58 Vitamin B12 281.9 pg/mL (211-911) 08/05/22 08:08 Procalcitonin < 0.05 ng/mL (<0.15) 08/04/22 07:59 TSH 4.810 mlU/mL (0.270-4.200) H 08/05/22 08:08 Urine Color Yellow (Yellow) 08/02/22 Unknown Urine Turbidity Clear (Clear) 08/02/22 Unknown Ur Protein (Man) 1+ mg/dL (Negative) 08/02/22 Unknown Ur Ketones (Man) Negative (Negative) 08/02/22 Unknown Ur Nitrite (Man) Negative (Negative) 08/02/22 Unknown Ur Reducing Substances Not Reportable 08/02/22 Unknown Urine Ictotest Negative (Negative) 08/02/22 Unknown Leukocyte Esterase (Man) Negative (Negative) 08/02/22 Unknown Urine WBC (Auto) < 1.0 /HPF (0.0-6.0) 08/02/22 Unknown Urine RBC (Auto) < 1.0 /HPF (0.0-6.0) 08/02/22 Unknown Urine RBC (Manual) Negative (Negative) 08/02/22 Unknown Urine Mucus Few /HPF 08/02/22 Unknown SARS-CoV-2 (PCR) Positive (Negative) A 08/09/22 14:10 Rodriguez/IV: Voiding Method Urinal Active Medications - Current Medications Current Medications: Generic Name Dose Route Start Last Admin Trade Name Freq PRN Reason Stop Dose Admin Acetaminophen 650 mg 08/02/22 22:42 08/03/22 20:31 Acetaminophen 325 Mg Tab PO 650 mg Q4H PRN Administration Pain MILD(1-3)/Fever >100.5/GARCÍA Gabapentin 100 mg 08/04/22 14:00 08/09/22 15:16 Gabapentin 100 Mg Cap PO 100 mg Q8HR HAILEY Administration Heparin Sodium (Porcine) 5,000 unit 08/03/22 06:00 08/09/22 15:16 Heparin 5,000 Unit/1 Ml Vial SUB-Q 5,000 unit Q8HR HAILEY Administration Morphine Sulfate 2 mg 08/02/22 22:42 08/05/22 22:04 Morphine 2 Mg/1 Ml Inj IV 2 mg Q4H PRN Administration Pain, Moderate (4-6) Morphine Sulfate 4 mg 08/02/22 22:42 Morphine 4 Mg/1 Ml Inj IV Q4H PRN Pain , Severe (7-10) Ondansetron HCl 4 mg 08/02/22 22:42 Ondansetron 4 Mg/2 Ml Inj IV Q8H PRN Nausea And Vomiting Sodium Chloride 10 ml 08/03/22 10:00 08/09/22 09:07 Sodium Chloride 0.9% 10 Ml Flush Syringe IV 10 ml BID HAILEY Administration Sodium Chloride 10 ml 08/02/22 22:42 Sodium Chloride 0.9% 10 Ml Flush Syringe IV PRN PRN LINE FLUSH Tramadol HCl 50 mg 08/06/22 22:25 08/06/22 23:51 Tramadol 50 Mg Tab PO 50 mg Q8H PRN Administration Pain, Moderate (4-6) Nutrition/Malnutrition Assess - Dietary Evaluation Nutrition/Malnutrition Findings: Nutrition Notes Start: 08/09/22 11:55 Freq: Status: Active Protocol: Document 08/09/22 11:55 PRICILLA (Rec: 08/09/22 11:58 PRICILLA [id number]) Nutrition Notes Need for Assessment generated from: LOS Initial or Follow up Brief Note Other Pertinent Diagnosis COVID-19 (+) Current Diet Regular Height 6 ft Weight 84.7 kg [place] Body Weight (kg) 80.90 BMI 25.3 Weight Status Appropriate Subjective/Other Information Pt screened for LOS. He has consumed 77% of meals since admission. Percent of energy/protein needs met: 74% energy 81% pro Burn Absent Trauma Absent Current % PO Good (75-100%) Minimum of two criteria No Is patient on ventilator? No Is Patient Ambulatory and/or Out of Bed Yes REE-([place]-ambulatory/OOB) [ 2379.000 [id number]] Calculation Used for Recommendations [place] or Additional Notes Pro needs 1g/kg/day Fluid needs 1ml/kcal Nutrition Intervention Follow-Up By: 08/16/22 Additional Comments F/U: stable intakes, wt
[2022-08-10] MEDS: HEPARIN 5,000 UNIT/1 ML VIAL SUB-Q SCH ×3 (07:33→21:34)
[2022-08-10] MEDS: GABAPENTIN 100 MG CAP PO SCH ×3 (07:34→21:34)
--- NOTE | 2022-08-10 14:44 | Progress Note ---
Assessment and Plan Assessment and plan: 31-year-old male with known history of relapsing and remitting multiple sclerosis presenting to the emergency room complaining of generalized body aches and pain over the last 24 hours. Patient states he has been having progressive weakness and numbness in his lower extremities and occasionally in his hands. He has had urinary incontinence but denies any fecal incontinence. Does not follow-up any neurologist on outpatient basis at this time and he has not been on medication for over a year. Work-up in the emergency room showed unremarkable chest x-ray. Patient was evaluated by the neurologist and recommendation was to check MRI of the brain, cervical spine thoracic and lumbosacral spine. Steroid not recommended at this time. Patient also tested positive for COVID-19 on 08/03/2022, he is fully vaccinated against COVID-19. #Asymptomatic COVID-19 infection Patient currently saturating well on room air; therefore, patient does not require steroid administration for COVID-19 infection or remdesivir Continue airborne and droplet precautions #Multiple Sclerosis exacerbation #Bladder incontinence #Peripheral neuropathy MRI brain and cervical spine (08/06/2022) revealing "findings compatible with the patient's history of multiple sclerosismultiple cord lesions seen. No definitive signs of acute demyelination appreciated. Left thyroid lobe noduleincidentaloma". MRI thoracic and lumbar spine (08/08/2022) revealing scattered hyperintense foci involving thoracic spinal cord most consistent with demyelination. No disc protrusion or significant stenosis involving the thoracic spine. Central disc protrusion at [id number] mildly deforms the ventral thecal sac. Broad-based right-sided disc bulge at L5-S1 which mildly encroaches on the right lateral recess and proximal right S1 nerve root sheath. There is mild neural foraminal narrowing bilaterally. Neurology consulted; appreciate recs. Currently describing recrudescence of multiple sclerosis. Currently holding on steroids for multiple sclerosis exacerbation. Awaiting neurology's recommendations about possible initiation. Continue Neurontin Physical therapy recommending subacute rehab. Patient agrees with recommendation. Case management made aware to initiate authorizations. Continue Rodriguez #Advanced care planning -Disease education conducted, care plan discussed, diagnoses discussed, prognosis discussed, and patient acknowledges understanding with care plan -Time: +30 min #Discharge planning - Patient is pending Subacute rehab authorization. - Case management has been made aware. - Discharge is tentatively 48-72 hours Disposition Plan: Pending rehab authorization Total Time Spent with Patient (Minutes): 30 min History Interval history: No acute events overnight. Hospitalist Physical - Constitutional Vitals: Temp Pulse Resp BP Pulse Ox 97.4 F L 48 L 18 92/49 96 08/10/22 05:22 08/10/22 05:22 08/10/22 05:22 08/10/22 05:22 08/10/22 09:32 General appearance: Present: no acute distress, well-nourished - EENT Eyes: Present: PERRL, EOM intact ENT: hearing intact, clear oral mucosa, dentition normal - Neck Neck: Present: supple, normal ROM - Respiratory Respiratory effort: normal Respiratory: bilateral: CTA - Cardiovascular Rhythm: regular Heart Sounds: Present: S1 & S2 - Extremities Extremities: no ischemia, pulses intact, pulses symmetrical, No edema, normal temperature, normal color, Full ROM Peripheral Pulses: within normal limits - Abdominal General gastrointestinal: soft, non-tender, non-distended, normal bowel sounds - Integumentary Integumentary: Present: clear, warm, dry - Psychiatric Psychiatric: appropriate mood/affect, intact judgment & insight, memory intact, cooperative - Neurologic Neurologic: CNII-XII intact, moves all extremities, other (3/5 strength of RLE; 4/5 strength of LLE) - Allied Health Allied health notes reviewed: nursing, case management Results - Labs CBC & Chem 7: 08/02/22 19:58 08/04/22 07:59 Labs: Laboratory Last Values WBC 5.4 K/mm3 (4.5-11.0) 08/02/22 19:58 RBC 5.49 M/mm3 (3.65-5.03) H 08/02/22 19:58 Hgb 12.0 gm/dl (11.8-15.2) 08/02/22 19:58 Hct 38.4 % (35.5-45.6) 08/02/22 19:58 MCV 70 fl (84-94) L 08/02/22 19:58 MCH 22 pg (28-32) L 08/02/22 19:58 MCHC 31 % (32-34) L 08/02/22 19:58 RDW 15.9 % (13.2-15.2) H 08/02/22 19:58 Plt Count 246 K/mm3 (140-440) 08/02/22 19:58 Lymph % (Auto) 12.6 % (13.4-35.0) L 08/02/22 19:58 [place] % (Auto) 12.5 % (0.0-7.3) H 08/02/22 19:58 Eos % (Auto) 0.0 % (0.0-4.3) 08/02/22 19:58 Baso % (Auto) 0.7 % (0.0-1.8) 08/02/22 19:58 Lymph # (Auto) 0.7 K/mm3 (1.2-5.4) L 08/02/22 19:58 [place] # (Auto) 0.7 K/mm3 (0.0-0.8) 08/02/22 19:58 Eos # (Auto) 0.0 K/mm3 (0.0-0.4) 08/02/22 19:58 Baso # (Auto) 0.0 K/mm3 (0.0-0.1) 08/02/22 19:58 Seg Neutrophils % 74.2 % (40.0-70.0) H 08/02/22 19:58 Seg Neutrophils # 4.0 K/mm3 (1.8-7.7) 08/02/22 19:58 D-Dimer 138.01 ng/mlDDU (0-234) 08/04/22 07:59 Sodium 144 mmol/L (137-145) 08/03/22 04:19 Potassium 3.9 mmol/L (3.6-5.0) 08/03/22 04:19 Chloride 111.6 mmol/L (98-107) H 08/03/22 04:19 Carbon Dioxide 21 mmol/L (22-30) L 08/03/22 04:19 Anion Gap 15 mmol/L 08/03/22 04:19 BUN 5 mg/dL (9-20) L 08/03/22 04:19 Creatinine 0.8 mg/dL (0.8-1.3) 08/03/22 04:19 Estimated GFR > 60 ml/min 08/03/22 04:19 BUN/Creatinine Ratio 6 % 08/03/22 04:19 Glucose 86 mg/dL (75-100) 08/04/22 07:59 Lactic Acid 1.50 mmol/L (0.7-2.0) 08/03/22 04:19 Calcium 8.2 mg/dL (8.4-10.2) L 08/03/22 04:19 Ferritin 137.2 ng/mL (30.0-300.0) 08/04/22 07:59 Total Bilirubin 0.40 mg/dL (0.1-1.2) 08/02/22 19:58 AST 12 units/L (5-40) 08/02/22 19:58 ALT 7 units/L (7-56) 08/02/22 19:58 Alkaline Phosphatase 77 units/L (35-129) 08/02/22 19:58 Lactate Dehydrogenase 131 units/L (91-180) 08/04/22 07:59 C-Reactive Protein 1.80 mg/dL (0.00-1.30) H 08/04/22 07:59 Total Protein 6.7 g/dL (6.3-8.2) 08/02/22 19:58 Albumin 4.6 g/dL (3.9-5) 08/02/22 19:58 Albumin/Globulin Ratio 2.2 % 08/02/22 19:58 Vitamin B12 281.9 pg/mL (211-911) 08/05/22 08:08 Procalcitonin < 0.05 ng/mL (<0.15) 08/04/22 07:59 TSH 4.810 mlU/mL (0.270-4.200) H 08/05/22 08:08 Urine Color Yellow (Yellow) 08/02/22 Unknown Urine Turbidity Clear (Clear) 08/02/22 Unknown Ur Protein (Man) 1+ mg/dL (Negative) 08/02/22 Unknown Ur Ketones (Man) Negative (Negative) 08/02/22 Unknown Ur Nitrite (Man) Negative (Negative) 08/02/22 Unknown Ur Reducing Substances Not Reportable 08/02/22 Unknown Urine Ictotest Negative (Negative) 08/02/22 Unknown Leukocyte Esterase (Man) Negative (Negative) 08/02/22 Unknown Urine WBC (Auto) < 1.0 /HPF (0.0-6.0) 08/02/22 Unknown Urine RBC (Auto) < 1.0 /HPF (0.0-6.0) 08/02/22 Unknown Urine RBC (Manual) Negative (Negative) 08/02/22 Unknown Urine Mucus Few /HPF 08/02/22 Unknown SARS-CoV-2 (PCR) Positive (Negative) A 08/09/22 14:10 Rodriguez/IV: Voiding Method Urinal Active Medications - Current Medications Current Medications: Generic Name Dose Route Start Last Admin Trade Name Freq PRN Reason Stop Dose Admin Acetaminophen 650 mg 08/02/22 22:42 08/03/22 20:31 Acetaminophen 325 Mg Tab PO 650 mg Q4H PRN Administration Pain MILD(1-3)/Fever >100.5/GARCÍA Gabapentin 100 mg 08/04/22 14:00 08/10/22 14:16 Gabapentin 100 Mg Cap PO 100 mg Q8HR HAILEY Administration Heparin Sodium (Porcine) 5,000 unit 08/03/22 06:00 08/10/22 14:16 Heparin 5,000 Unit/1 Ml Vial SUB-Q 5,000 unit Q8HR HAILEY Administration Morphine Sulfate 2 mg 08/02/22 22:42 08/05/22 22:04 Morphine 2 Mg/1 Ml Inj IV 2 mg Q4H PRN Administration Pain, Moderate (4-6) Morphine Sulfate 4 mg 08/02/22 22:42 Morphine 4 Mg/1 Ml Inj IV Q4H PRN Pain , Severe (7-10) Ondansetron HCl 4 mg 08/02/22 22:42 Ondansetron 4 Mg/2 Ml Inj IV Q8H PRN Nausea And Vomiting Sodium Chloride 10 ml 08/03/22 10:00 08/10/22 14:16 Sodium Chloride 0.9% 10 Ml Flush Syringe IV 10 ml BID HAILEY Administration Sodium Chloride 10 ml 08/02/22 22:42 Sodium Chloride 0.9% 10 Ml Flush Syringe IV PRN PRN LINE FLUSH Tramadol HCl 50 mg 08/06/22 22:25 08/06/22 23:51 Tramadol 50 Mg Tab PO 50 mg Q8H PRN Administration Pain, Moderate (4-6) Nutrition/Malnutrition Assess - Dietary Evaluation Nutrition/Malnutrition Findings: Nutrition Notes Start: 08/09/22 11:55 Freq: Status: Active Protocol: Document 08/09/22 11:55 PRICILLA (Rec: 08/09/22 11:58 PRICILLA [id number]) Nutrition Notes Need for Assessment generated from: LOS Initial or Follow up Brief Note Other Pertinent Diagnosis COVID-19 (+) Current Diet Regular Height 6 ft Weight 84.7 kg [place] Body Weight (kg) 80.90 BMI 25.3 Weight Status Appropriate Subjective/Other Information Pt screened for LOS. He has consumed 77% of meals since admission. Percent of energy/protein needs met: 74% energy 81% pro Burn Absent Trauma Absent Current % PO Good (75-100%) Minimum of two criteria No Is patient on ventilator? No Is Patient Ambulatory and/or Out of Bed Yes REE-([place]-ambulatory/OOB) [ 2379.000 NUTR.MSJOOB] Calculation Used for Recommendations [facility] Additional Notes Pro needs 1g/kg/day Fluid needs 1ml/kcal Nutrition Intervention Follow-Up By: 08/16/22 Additional Comments F/U: stable intakes, wt
[2022-08-11] MEDS: GABAPENTIN 100 MG CAP PO SCH ×3 (06:06→21:48)
[2022-08-11] MEDS: HEPARIN 5,000 UNIT/1 ML VIAL SUB-Q SCH ×3 (06:06→21:48)
--- NOTE | 2022-08-11 12:45 | Progress Note ---
Assessment and Plan Assessment and plan: 31-year-old male with known history of relapsing and remitting multiple sclerosis presenting to the emergency room complaining of generalized body aches and pain over the last 24 hours. Patient states he has been having progressive weakness and numbness in his lower extremities and occasionally in his hands. He has had urinary incontinence but denies any fecal incontinence. Does not follow-up any neurologist on outpatient basis at this time and he has not been on medication for over a year. Work-up in the emergency room showed unremarkable chest x-ray. Patient was evaluated by the neurologist and recommendation was to check MRI of the brain, cervical spine thoracic and lumbosacral spine. Steroid not recommended at this time. Patient also tested positive for COVID-19 on 08/03/2022, he is fully vaccinated against COVID-19. #Asymptomatic COVID-19 infection Patient currently saturating well on room air; therefore, patient does not require steroid administration for COVID-19 infection or remdesivir Continue airborne and droplet precautions #Multiple Sclerosis exacerbation #Bladder incontinence #Peripheral neuropathy MRI brain and cervical spine (08/06/2022) revealing "findings compatible with the patient's history of multiple sclerosismultiple cord lesions seen. No definitive signs of acute demyelination appreciated. Left thyroid lobe noduleincidentaloma". MRI thoracic and lumbar spine (08/08/2022) revealing scattered hyperintense foci involving thoracic spinal cord most consistent with demyelination. No disc protrusion or significant stenosis involving the thoracic spine. Central disc protrusion at [id number] mildly deforms the ventral thecal sac. Broad-based right-sided disc bulge at L5-S1 which mildly encroaches on the right lateral recess and proximal right S1 nerve root sheath. There is mild neural foraminal narrowing bilaterally. Neurology consulted; appreciate recs. Currently describing recrudescence of multiple sclerosis. Currently holding on steroids for multiple sclerosis exacerbation. Awaiting neurology's recommendations about possible initiation. Continue Neurontin Physical therapy recommending subacute rehab. Patient agrees with recommendation. Case management made aware to initiate authorizations. Continue Rodriguez #Advanced care planning -Disease education conducted, care plan discussed, diagnoses discussed, prognosis discussed, and patient acknowledges understanding with care plan -Time: +30 min #Discharge planning - Patient is pending Subacute rehab authorization. - Case management has been made aware. - Discharge is tentatively 48-72 hours Disposition Plan: Continue medical management Total Time Spent with Patient (Minutes): 45 min History Interval history: No acute events overnight. Hospitalist Physical - Constitutional Vitals: Temp Pulse Resp BP Pulse Ox 98.2 F 60 18 101/72 99 08/11/22 10:38 08/11/22 10:38 08/11/22 10:38 08/11/22 10:38 08/11/22 10:38 General appearance: Present: no acute distress, well-nourished - EENT Eyes: Present: PERRL, EOM intact ENT: hearing intact, clear oral mucosa, dentition normal - Neck Neck: Present: supple, normal ROM - Respiratory Respiratory effort: normal Respiratory: bilateral: CTA - Cardiovascular Rhythm: regular Heart Sounds: Present: S1 & S2 - Extremities Extremities: no ischemia, pulses intact, pulses symmetrical, No edema, normal temperature, normal color, Full ROM Peripheral Pulses: within normal limits - Abdominal General gastrointestinal: soft, non-tender, non-distended, normal bowel sounds - Integumentary Integumentary: Present: clear, warm, dry - Psychiatric Psychiatric: appropriate mood/affect, intact judgment & insight, memory intact, cooperative - Neurologic Neurologic: CNII-XII intact, moves all extremities - Allied Health Allied health notes reviewed: nursing Results - Labs CBC & Chem 7: 08/02/22 19:58 08/04/22 07:59 Labs: Laboratory Last Values WBC 5.4 K/mm3 (4.5-11.0) 08/02/22 19:58 RBC 5.49 M/mm3 (3.65-5.03) H 08/02/22 19:58 Hgb 12.0 gm/dl (11.8-15.2) 08/02/22 19:58 Hct 38.4 % (35.5-45.6) 08/02/22 19:58 MCV 70 fl (84-94) L 08/02/22 19:58 MCH 22 pg (28-32) L 08/02/22 19:58 MCHC 31 % (32-34) L 08/02/22 19:58 RDW 15.9 % (13.2-15.2) H 08/02/22 19:58 Plt Count 246 K/mm3 (140-440) 08/02/22 19:58 Lymph % (Auto) 12.6 % (13.4-35.0) L 08/02/22 19:58 [place] % (Auto) 12.5 % (0.0-7.3) H 08/02/22 19:58 Eos % (Auto) 0.0 % (0.0-4.3) 08/02/22 19:58 Baso % (Auto) 0.7 % (0.0-1.8) 08/02/22 19:58 Lymph # (Auto) 0.7 K/mm3 (1.2-5.4) L 08/02/22 19:58 [place] # (Auto) 0.7 K/mm3 (0.0-0.8) 08/02/22 19:58 Eos # (Auto) 0.0 K/mm3 (0.0-0.4) 08/02/22 19:58 Baso # (Auto) 0.0 K/mm3 (0.0-0.1) 08/02/22 19:58 Seg Neutrophils % 74.2 % (40.0-70.0) H 08/02/22 19:58 Seg Neutrophils # 4.0 K/mm3 (1.8-7.7) 08/02/22 19:58 D-Dimer 138.01 ng/mlDDU (0-234) 08/04/22 07:59 Sodium 144 mmol/L (137-145) 08/03/22 04:19 Potassium 3.9 mmol/L (3.6-5.0) 08/03/22 04:19 Chloride 111.6 mmol/L (98-107) H 08/03/22 04:19 Carbon Dioxide 21 mmol/L (22-30) L 08/03/22 04:19 Anion Gap 15 mmol/L 08/03/22 04:19 BUN 5 mg/dL (9-20) L 08/03/22 04:19 Creatinine 0.8 mg/dL (0.8-1.3) 08/03/22 04:19 Estimated GFR > 60 ml/min 08/03/22 04:19 BUN/Creatinine Ratio 6 % 08/03/22 04:19 Glucose 86 mg/dL (75-100) 08/04/22 07:59 Lactic Acid 1.50 mmol/L (0.7-2.0) 08/03/22 04:19 Calcium 8.2 mg/dL (8.4-10.2) L 08/03/22 04:19 Ferritin 137.2 ng/mL (30.0-300.0) 08/04/22 07:59 Total Bilirubin 0.40 mg/dL (0.1-1.2) 08/02/22 19:58 AST 12 units/L (5-40) 08/02/22 19:58 ALT 7 units/L (7-56) 08/02/22 19:58 Alkaline Phosphatase 77 units/L (35-129) 08/02/22 19:58 Lactate Dehydrogenase 131 units/L (91-180) 08/04/22 07:59 C-Reactive Protein 1.80 mg/dL (0.00-1.30) H 08/04/22 07:59 Total Protein 6.7 g/dL (6.3-8.2) 08/02/22 19:58 Albumin 4.6 g/dL (3.9-5) 08/02/22 19:58 Albumin/Globulin Ratio 2.2 % 08/02/22 19:58 Vitamin B12 281.9 pg/mL (211-911) 08/05/22 08:08 Procalcitonin < 0.05 ng/mL (<0.15) 08/04/22 07:59 TSH 4.810 mlU/mL (0.270-4.200) H 08/05/22 08:08 Free T4 1.31 ng/dL (0.76-1.46) 08/10/22 13:48 Urine Color Yellow (Yellow) 08/02/22 Unknown Urine Turbidity Clear (Clear) 08/02/22 Unknown Ur Protein (Man) 1+ mg/dL (Negative) 08/02/22 Unknown Ur Ketones (Man) Negative (Negative) 08/02/22 Unknown Ur Nitrite (Man) Negative (Negative) 08/02/22 Unknown Ur Reducing Substances Not Reportable 08/02/22 Unknown Urine Ictotest Negative (Negative) 08/02/22 Unknown Leukocyte Esterase (Man) Negative (Negative) 08/02/22 Unknown Urine WBC (Auto) < 1.0 /HPF (0.0-6.0) 08/02/22 Unknown Urine RBC (Auto) < 1.0 /HPF (0.0-6.0) 08/02/22 Unknown Urine RBC (Manual) Negative (Negative) 08/02/22 Unknown Urine Mucus Few /HPF 08/02/22 Unknown SARS-CoV-2 (PCR) Positive (Negative) A 08/09/22 14:10 Rodriguez/IV: Voiding Method Urinal Active Medications - Current Medications Current Medications: Generic Name Dose Route Start Last Admin Trade Name Freq PRN Reason Stop Dose Admin Acetaminophen 650 mg 08/02/22 22:42 08/03/22 20:31 Acetaminophen 325 Mg Tab PO 650 mg Q4H PRN Administration Pain MILD(1-3)/Fever >100.5/GARCÍA Gabapentin 100 mg 08/04/22 14:00 08/11/22 06:06 Gabapentin 100 Mg Cap PO 100 mg Q8HR HAILEY Administration Heparin Sodium (Porcine) 5,000 unit 08/03/22 06:00 08/11/22 06:06 Heparin 5,000 Unit/1 Ml Vial SUB-Q 5,000 unit Q8HR HAILEY Administration Morphine Sulfate 2 mg 08/02/22 22:42 08/05/22 22:04 Morphine 2 Mg/1 Ml Inj IV 2 mg Q4H PRN Administration Pain, Moderate (4-6) Morphine Sulfate 4 mg 08/02/22 22:42 Morphine 4 Mg/1 Ml Inj IV Q4H PRN Pain , Severe (7-10) Ondansetron HCl 4 mg 08/02/22 22:42 Ondansetron 4 Mg/2 Ml Inj IV Q8H PRN Nausea And Vomiting Sodium Chloride 10 ml 08/03/22 10:00 08/10/22 21:35 Sodium Chloride 0.9% 10 Ml Flush Syringe IV 10 ml BID HAILEY Administration Sodium Chloride 10 ml 08/02/22 22:42 Sodium Chloride 0.9% 10 Ml Flush Syringe IV PRN PRN LINE FLUSH Tramadol HCl 50 mg 08/06/22 22:25 08/06/22 23:51 Tramadol 50 Mg Tab PO 50 mg Q8H PRN Administration Pain, Moderate (4-6) Nutrition/Malnutrition Assess - Dietary Evaluation Nutrition/Malnutrition Findings: Nutrition Notes Start: 08/09/22 11:55 Freq: Status: Active Protocol: Document 08/09/22 11:55 PRICILLA (Rec: 08/09/22 11:58 PRICILLA [id number]) Nutrition Notes Need for Assessment generated from: LOS Initial or Follow up Brief Note Other Pertinent Diagnosis COVID-19 (+) Current Diet Regular Height 6 ft Weight 84.7 kg [place] Body Weight (kg) 80.90 BMI 25.3 Weight Status Appropriate Subjective/Other Information Pt screened for LOS. He has consumed 77% of meals since admission. Percent of energy/protein needs met: 74% energy 81% pro Burn Absent Trauma Absent Current % PO Good (75-100%) Minimum of two criteria No Is patient on ventilator? No Is Patient Ambulatory and/or Out of Bed Yes REE-([place] or-ambulatory/OOB) [ 2379.000 NUTR.MSJOOB] Calculation Used for Recommendations [place] or Additional Notes Pro needs 1g/kg/day Fluid needs 1ml/kcal Nutrition Intervention Follow-Up By: 08/16/22 Additional Comments F/U: stable intakes, wt
[2022-08-12] MEDS: HEPARIN 5,000 UNIT/1 ML VIAL SUB-Q SCH ×3 (06:15→23:09)
[2022-08-12] MEDS: GABAPENTIN 100 MG CAP PO SCH ×3 (06:16→23:08)
--- NOTE | 2022-08-12 10:42 | Progress Note ---
Assessment and Plan Assessment and plan: 31-year-old male with known history of relapsing and remitting multiple sclerosis presenting to the emergency room complaining of generalized body aches and pain over the last 24 hours. Patient states he has been having progressive weakness and numbness in his lower extremities and occasionally in his hands. He has had urinary incontinence but denies any fecal incontinence. Does not follow-up any neurologist on outpatient basis at this time and he has not been on medication for over a year. Work-up in the emergency room showed unremarkable chest x-ray. Patient was evaluated by the neurologist and recommendation was to check MRI of the brain, cervical spine thoracic and lumbosacral spine. Steroid not recommended at this time. Patient also tested positive for COVID-19 on 08/03/2022, he is fully vaccinated against COVID-19. #Asymptomatic COVID-19 infection Patient currently saturating well on room air; therefore, patient does not require steroid administration for COVID-19 infection or remdesivir Continue airborne and droplet precautions #Multiple Sclerosis exacerbation #Bladder incontinence #Peripheral neuropathy MRI brain and cervical spine (08/06/2022) revealing "findings compatible with the patient's history of multiple sclerosismultiple cord lesions seen. No definitive signs of acute demyelination appreciated. Left thyroid lobe noduleincidentaloma". MRI thoracic and lumbar spine (08/08/2022) revealing scattered hyperintense foci involving thoracic spinal cord most consistent with demyelination. No disc protrusion or significant stenosis involving the thoracic spine. Central disc protrusion at [id number] mildly deforms the ventral thecal sac. Broad-based right-sided disc bulge at L5-S1 which mildly encroaches on the right lateral recess and proximal right S1 nerve root sheath. There is mild neural foraminal narrowing bilaterally. Neurology consulted; appreciate recs. Currently describing recrudescence of multiple sclerosis. Currently holding on steroids for multiple sclerosis exacerbation. Awaiting neurology's recommendations about possible initiation. Continue Neurontin Physical therapy recommending subacute rehab. Patient agrees with recommendation. Case management made aware to initiate authorizations. Continue Rodriguez #Advanced care planning -Disease education conducted, care plan discussed, diagnoses discussed, prognosis discussed, and patient acknowledges understanding with care plan -Time: +30 min #Discharge planning - Patient is pending Subacute rehab authorization. - Case management has been made aware. Disposition Plan: Pending rehab placement Total Time Spent with Patient (Minutes): 30 minutes History Interval history: No acute events overnight. Hospitalist Physical - Constitutional Vitals: Temp Pulse Resp BP Pulse Ox 97.8 F 56 L 18 137/72 100 08/12/22 04:34 08/12/22 04:34 08/12/22 04:34 08/12/22 04:34 08/12/22 04:34 General appearance: Present: no acute distress, well-nourished - EENT Eyes: Present: PERRL, EOM intact ENT: hearing intact, clear oral mucosa, dentition normal - Neck Neck: Present: supple, normal ROM - Respiratory Respiratory effort: normal Respiratory: bilateral: CTA - Cardiovascular Rhythm: regular Heart Sounds: Present: S1 & S2 - Extremities Extremities: no ischemia, pulses intact, pulses symmetrical, No edema, normal temperature, normal color Peripheral Pulses: within normal limits - Abdominal General gastrointestinal: soft, non-tender, non-distended, normal bowel sounds - Integumentary Integumentary: Present: clear, warm, dry - Psychiatric Psychiatric: appropriate mood/affect, intact judgment & insight, memory intact, cooperative - Neurologic Neurologic: CNII-XII intact, moves all extremities, other (3/5 strength of right lower extremity and 4/5 strength of left lower extremity) - Allied Health Allied health notes reviewed: nursing, social work, case management Results - Labs CBC & Chem 7: 08/02/22 19:58 08/04/22 07:59 Labs: Laboratory Last Values WBC 5.4 K/mm3 (4.5-11.0) 08/02/22 19:58 RBC 5.49 M/mm3 (3.65-5.03) H 08/02/22 19:58 Hgb 12.0 gm/dl (11.8-15.2) 08/02/22 19:58 Hct 38.4 % (35.5-45.6) 08/02/22 19:58 MCV 70 fl (84-94) L 08/02/22 19:58 MCH 22 pg (28-32) L 08/02/22 19:58 MCHC 31 % (32-34) L 08/02/22 19:58 RDW 15.9 % (13.2-15.2) H 08/02/22 19:58 Plt Count 246 K/mm3 (140-440) 08/02/22 19:58 Lymph % (Auto) 12.6 % (13.4-35.0) L 08/02/22 19:58 [place] % (Auto) 12.5 % (0.0-7.3) H 08/02/22 19:58 Eos % (Auto) 0.0 % (0.0-4.3) 08/02/22 19:58 Baso % (Auto) 0.7 % (0.0-1.8) 08/02/22 19:58 Lymph # (Auto) 0.7 K/mm3 (1.2-5.4) L 08/02/22 19:58 [place] # (Auto) 0.7 K/mm3 (0.0-0.8) 08/02/22 19:58 Eos # (Auto) 0.0 K/mm3 (0.0-0.4) 08/02/22 19:58 Baso # (Auto) 0.0 K/mm3 (0.0-0.1) 08/02/22 19:58 Seg Neutrophils % 74.2 % (40.0-70.0) H 08/02/22 19:58 Seg Neutrophils # 4.0 K/mm3 (1.8-7.7) 08/02/22 19:58 D-Dimer 138.01 ng/mlDDU (0-234) 08/04/22 07:59 Sodium 144 mmol/L (137-145) 08/03/22 04:19 Potassium 3.9 mmol/L (3.6-5.0) 08/03/22 04:19 Chloride 111.6 mmol/L (98-107) H 08/03/22 04:19 Carbon Dioxide 21 mmol/L (22-30) L 08/03/22 04:19 Anion Gap 15 mmol/L 08/03/22 04:19 BUN 5 mg/dL (9-20) L 08/03/22 04:19 Creatinine 0.8 mg/dL (0.8-1.3) 08/03/22 04:19 Estimated GFR > 60 ml/min 08/03/22 04:19 BUN/Creatinine Ratio 6 % 08/03/22 04:19 Glucose 86 mg/dL (75-100) 08/04/22 07:59 Lactic Acid 1.50 mmol/L (0.7-2.0) 08/03/22 04:19 Calcium 8.2 mg/dL (8.4-10.2) L 08/03/22 04:19 Ferritin 137.2 ng/mL (30.0-300.0) 08/04/22 07:59 Total Bilirubin 0.40 mg/dL (0.1-1.2) 08/02/22 19:58 AST 12 units/L (5-40) 08/02/22 19:58 ALT 7 units/L (7-56) 08/02/22 19:58 Alkaline Phosphatase 77 units/L (35-129) 08/02/22 19:58 Lactate Dehydrogenase 131 units/L (91-180) 08/04/22 07:59 C-Reactive Protein 1.80 mg/dL (0.00-1.30) H 08/04/22 07:59 Total Protein 6.7 g/dL (6.3-8.2) 08/02/22 19:58 Albumin 4.6 g/dL (3.9-5) 08/02/22 19:58 Albumin/Globulin Ratio 2.2 % 08/02/22 19:58 Vitamin B12 281.9 pg/mL (211-911) 08/05/22 08:08 Procalcitonin < 0.05 ng/mL (<0.15) 08/04/22 07:59 TSH 4.810 mlU/mL (0.270-4.200) H 08/05/22 08:08 Free T4 1.31 ng/dL (0.76-1.46) 08/10/22 13:48 Urine Color Yellow (Yellow) 08/02/22 Unknown Urine Turbidity Clear (Clear) 08/02/22 Unknown Ur Protein (Man) 1+ mg/dL (Negative) 08/02/22 Unknown Ur Ketones (Man) Negative (Negative) 08/02/22 Unknown Ur Nitrite (Man) Negative (Negative) 08/02/22 Unknown Ur Reducing Substances Not Reportable 08/02/22 Unknown Urine Ictotest Negative (Negative) 08/02/22 Unknown Leukocyte Esterase (Man) Negative (Negative) 08/02/22 Unknown Urine WBC (Auto) < 1.0 /HPF (0.0-6.0) 08/02/22 Unknown Urine RBC (Auto) < 1.0 /HPF (0.0-6.0) 08/02/22 Unknown Urine RBC (Manual) Negative (Negative) 08/02/22 Unknown Urine Mucus Few /HPF 08/02/22 Unknown SARS-CoV-2 (PCR) Positive (Negative) A 08/09/22 14:10 Rodriguez/IV: Voiding Method Urinal Active Medications - Current Medications Current Medications: Generic Name Dose Route Start Last Admin Trade Name Freq PRN Reason Stop Dose Admin Acetaminophen 650 mg 08/02/22 22:42 08/03/22 20:31 Acetaminophen 325 Mg Tab PO 650 mg Q4H PRN Administration Pain MILD(1-3)/Fever >100.5/GARCÍA Gabapentin 100 mg 08/04/22 14:00 08/12/22 06:16 Gabapentin 100 Mg Cap PO 100 mg Q8HR HAILEY Administration Heparin Sodium (Porcine) 5,000 unit 08/03/22 06:00 08/12/22 06:15 Heparin 5,000 Unit/1 Ml Vial SUB-Q 5,000 unit Q8HR HAILEY Administration Morphine Sulfate 2 mg 08/02/22 22:42 08/05/22 22:04 Morphine 2 Mg/1 Ml Inj IV 2 mg Q4H PRN Administration Pain, Moderate (4-6) Morphine Sulfate 4 mg 08/02/22 22:42 Morphine 4 Mg/1 Ml Inj IV Q4H PRN Pain , Severe (7-10) Ondansetron HCl 4 mg 08/02/22 22:42 Ondansetron 4 Mg/2 Ml Inj IV Q8H PRN Nausea And Vomiting Sodium Chloride 10 ml 08/03/22 10:00 08/11/22 21:49 Sodium Chloride 0.9% 10 Ml Flush Syringe IV 10 ml BID HAILEY Administration Sodium Chloride 10 ml 08/02/22 22:42 Sodium Chloride 0.9% 10 Ml Flush Syringe IV PRN PRN LINE FLUSH Tramadol HCl 50 mg 08/06/22 22:25 08/06/22 23:51 Tramadol 50 Mg Tab PO 50 mg Q8H PRN Administration Pain, Moderate (4-6) Nutrition/Malnutrition Assess - Dietary Evaluation Nutrition/Malnutrition Findings: Nutrition Notes Start: 08/09/22 11:55 Freq: Status: Active Protocol: Document 08/09/22 11:55 PRICILLA (Rec: 08/09/22 11:58 [id number] Nutrition Notes Need for Assessment generated from: LOS Initial or Follow up Brief Note Other Pertinent Diagnosis COVID-19 (+) Current Diet Regular Height 6 ft Weight 84.7 kg [place] Body Weight (kg) 80.90 BMI 25.3 Weight Status Appropriate Subjective/Other Information Pt screened for LOS. He has consumed 77% of meals since admission. Percent of energy/protein needs met: 74% energy 81% pro Burn Absent Trauma Absent Current % PO Good (75-100%) Minimum of two criteria No Is patient on ventilator? No Is Patient Ambulatory and/or Out of Bed Yes REE-([facility]-ambulatory/OOB) [ 2379.000 NUTR.MSJOOB] Calculation Used for Recommendations [facility] Additional Notes Pro needs 1g/kg/day Fluid needs 1ml/kcal Nutrition Intervention Follow-Up By: 08/16/22 Additional Comments F/U: stable intakes, wt
[2022-08-13] MEDS: HEPARIN 5,000 UNIT/1 ML VIAL SUB-Q SCH ×3 (06:35→22:42)
[2022-08-13] MEDS: GABAPENTIN 100 MG CAP PO SCH ×3 (06:35→22:42)
--- NOTE | 2022-08-13 12:06 | Progress Note ---
Assessment and Plan Assessment and plan: 31-year-old male with known history of relapsing and remitting multiple sclerosis presenting to the emergency room complaining of generalized body aches and pain over the last 24 hours. Patient states he has been having progressive weakness and numbness in his lower extremities and occasionally in his hands. He has had urinary incontinence but denies any fecal incontinence. Does not follow-up any neurologist on outpatient basis at this time and he has not been on medication for over a year. Work-up in the emergency room showed unremarkable chest x-ray. Patient was evaluated by the neurologist and recommendation was to check MRI of the brain, cervical spine thoracic and lumbosacral spine. Steroid not recommended at this time. Patient also tested positive for COVID-19 on 08/03/2022, he is fully vaccinated against COVID-19. #Asymptomatic COVID-19 infection Patient currently saturating well on room air; therefore, patient does not require steroid administration for COVID-19 infection or remdesivir Continue airborne and droplet precautions - Repeat COVID PCR on 08/13 positive #Multiple Sclerosis exacerbation #Bladder incontinence #Peripheral neuropathy MRI brain and cervical spine (08/06/2022) revealing "findings compatible with the patient's history of multiple sclerosismultiple cord lesions seen. No definitive signs of acute demyelination appreciated. Left thyroid lobe noduleincidentaloma". MRI thoracic and lumbar spine (08/08/2022) revealing scattered hyperintense foci involving thoracic spinal cord most consistent with demyelination. No disc protrusion or significant stenosis involving the thoracic spine. Central disc protrusion at [id number] mildly deforms the ventral thecal sac. Broad-based right-sided disc bulge at L5-S1 which mildly encroaches on the right lateral recess and proximal right S1 nerve root sheath. There is mild neural foraminal narrowing bilaterally. Neurology consulted; appreciate recs. Currently describing recrudescence of multiple sclerosis. Currently holding on steroids for multiple sclerosis exacerbation. Continue Neurontin. Patient to follow-up with his outpatient neurologist after discharge Physical therapy recommending subacute rehab. Patient agrees with recommendation. Case management made aware to initiate authorizations. #Advanced care planning -Disease education conducted, care plan discussed, diagnoses discussed, prognosis discussed, and patient acknowledges understanding with care plan -Time: +30 min #Discharge planning - Patient is pending Subacute rehab bed at [facility] which will be available tomorrow 08/14 - Case management following History Interval history: No acute events overnight. Patient continues to have bilateral lower extremity weakness which he states is slowly improving. He has no other complaints at this time. Hospitalist Physical - Physical exam Narrative exam: GENERAL: Well-developed well-nourished. Sitting in a chair no acute distress. HEENT: Normocephalic. Atraumatic. NECK: Supple. CHEST/LUNGS: CTAB on room air HEART/CARDIOVASCULAR: RRR. No murmur, rubs or gallops appreciated. ABDOMEN: +BS. NT/ND. SKIN: No rashes noted. NEURO: No focal motor deficit. BLE weakness. Follows all commands and is ambulatory. MUSCULOSKELETAL: No joint effusion EXTREMITIES: No cyanosis, clubbing or edema. PSYCH: Cooperative. - Constitutional Vitals: Temp Pulse Resp BP Pulse Ox 98.2 F 61 15 106/60 100 08/13/22 10:25 08/13/22 10:25 08/13/22 10:25 08/13/22 10:25 08/13/22 10:25 General appearance: Present: no acute distress, well-nourished Results - Labs CBC & Chem 7: 08/02/22 19:58 08/04/22 07:59 Labs: Laboratory Last Values WBC 5.4 K/mm3 (4.5-11.0) 08/02/22 19:58 RBC 5.49 M/mm3 (3.65-5.03) H 08/02/22 19:58 Hgb 12.0 gm/dl (11.8-15.2) 08/02/22 19:58 Hct 38.4 % (35.5-45.6) 08/02/22 19:58 MCV 70 fl (84-94) L 08/02/22 19:58 MCH 22 pg (28-32) L 08/02/22 19:58 MCHC 31 % (32-34) L 08/02/22 19:58 RDW 15.9 % (13.2-15.2) H 08/02/22 19:58 Plt Count 246 K/mm3 (140-440) 08/02/22 19:58 Lymph % (Auto) 12.6 % (13.4-35.0) L 08/02/22 19:58 [place] % (Auto) 12.5 % (0.0-7.3) H 08/02/22 19:58 Eos % (Auto) 0.0 % (0.0-4.3) 08/02/22 19:58 Baso % (Auto) 0.7 % (0.0-1.8) 08/02/22 19:58 Lymph # (Auto) 0.7 K/mm3 (1.2-5.4) L 08/02/22 19:58 [place] # (Auto) 0.7 K/mm3 (0.0-0.8) 08/02/22 19:58 Eos # (Auto) 0.0 K/mm3 (0.0-0.4) 08/02/22 19:58 Baso # (Auto) 0.0 K/mm3 (0.0-0.1) 08/02/22 19:58 Seg Neutrophils % 74.2 % (40.0-70.0) H 08/02/22 19:58 Seg Neutrophils # 4.0 K/mm3 (1.8-7.7) 08/02/22 19:58 D-Dimer 138.01 ng/mlDDU (0-234) 08/04/22 07:59 Sodium 144 mmol/L (137-145) 08/03/22 04:19 Potassium 3.9 mmol/L (3.6-5.0) 08/03/22 04:19 Chloride 111.6 mmol/L (98-107) H 08/03/22 04:19 Carbon Dioxide 21 mmol/L (22-30) L 08/03/22 04:19 Anion Gap 15 mmol/L 08/03/22 04:19 BUN 5 mg/dL (9-20) L 08/03/22 04:19 Creatinine 0.8 mg/dL (0.8-1.3) 08/03/22 04:19 Estimated GFR > 60 ml/min 08/03/22 04:19 BUN/Creatinine Ratio 6 % 08/03/22 04:19 Glucose 86 mg/dL (75-100) 08/04/22 07:59 Lactic Acid 1.50 mmol/L (0.7-2.0) 08/03/22 04:19 Calcium 8.2 mg/dL (8.4-10.2) L 08/03/22 04:19 Ferritin 137.2 ng/mL (30.0-300.0) 08/04/22 07:59 Total Bilirubin 0.40 mg/dL (0.1-1.2) 08/02/22 19:58 AST 12 units/L (5-40) 08/02/22 19:58 ALT 7 units/L (7-56) 08/02/22 19:58 Alkaline Phosphatase 77 units/L (35-129) 08/02/22 19:58 Lactate Dehydrogenase 131 units/L (91-180) 08/04/22 07:59 C-Reactive Protein 1.80 mg/dL (0.00-1.30) H 08/04/22 07:59 Total Protein 6.7 g/dL (6.3-8.2) 08/02/22 19:58 Albumin 4.6 g/dL (3.9-5) 08/02/22 19:58 Albumin/Globulin Ratio 2.2 % 08/02/22 19:58 Vitamin B12 281.9 pg/mL (211-911) 08/05/22 08:08 Procalcitonin < 0.05 ng/mL (<0.15) 08/04/22 07:59 TSH 4.810 mlU/mL (0.270-4.200) H 08/05/22 08:08 Free T4 1.31 ng/dL (0.76-1.46) 08/10/22 13:48 Urine Color Yellow (Yellow) 08/02/22 Unknown Urine Turbidity Clear (Clear) 08/02/22 Unknown Ur Protein (Man) 1+ mg/dL (Negative) 08/02/22 Unknown Ur Ketones (Man) Negative (Negative) 08/02/22 Unknown Ur Nitrite (Man) Negative (Negative) 08/02/22 Unknown Ur Reducing Substances Not Reportable 08/02/22 Unknown Urine Ictotest Negative (Negative) 08/02/22 Unknown Leukocyte Esterase (Man) Negative (Negative) 08/02/22 Unknown Urine WBC (Auto) < 1.0 /HPF (0.0-6.0) 08/02/22 Unknown Urine RBC (Auto) < 1.0 /HPF (0.0-6.0) 08/02/22 Unknown Urine RBC (Manual) Negative (Negative) 08/02/22 Unknown Urine Mucus Few /HPF 08/02/22 Unknown SARS-CoV-2 (PCR) Positive (Negative) A 08/13/22 09:50 Rodriguez/IV: Voiding Method Toilet Active Medications - Current Medications Current Medications: Generic Name Dose Route Start Last Admin Trade Name Freq PRN Reason Stop Dose Admin Acetaminophen 650 mg 08/02/22 22:42 08/03/22 20:31 Acetaminophen 325 Mg Tab PO 650 mg Q4H PRN Administration Pain MILD(1-3)/Fever >100.5/GARCÍA Gabapentin 100 mg 08/04/22 14:00 08/13/22 06:35 Gabapentin 100 Mg Cap PO 100 mg Q8HR HAILEY Administration Heparin Sodium (Porcine) 5,000 unit 08/03/22 06:00 08/13/22 06:35 Heparin 5,000 Unit/1 Ml Vial SUB-Q 5,000 unit Q8HR HAILEY Administration Morphine Sulfate 2 mg 08/02/22 22:42 08/05/22 22:04 Morphine 2 Mg/1 Ml Inj IV 2 mg Q4H PRN Administration Pain, Moderate (4-6) Morphine Sulfate 4 mg 08/02/22 22:42 Morphine 4 Mg/1 Ml Inj IV Q4H PRN Pain , Severe (7-10) Ondansetron HCl 4 mg 08/02/22 22:42 Ondansetron 4 Mg/2 Ml Inj IV Q8H PRN Nausea And Vomiting Sodium Chloride 10 ml 08/03/22 10:00 08/12/22 23:10 Sodium Chloride 0.9% 10 Ml Flush Syringe IV 10 ml BID HAILEY Administration Sodium Chloride 10 ml 08/02/22 22:42 Sodium Chloride 0.9% 10 Ml Flush Syringe IV PRN PRN LINE FLUSH Tramadol HCl 50 mg 08/06/22 22:25 08/06/22 23:51 Tramadol 50 Mg Tab PO 50 mg Q8H PRN Administration Pain, Moderate (4-6) Nutrition/Malnutrition Assess - Dietary Evaluation Nutrition/Malnutrition Findings: Nutrition Notes Start: 08/09/22 11:55 Freq: Status: Active Protocol: Document 08/09/22 11:55 PRICILLA (Rec: 08/09/22 11:58 PRICILLA [id number]) Nutrition Notes Need for Assessment generated from: LOS Initial or Follow up Brief Note Other Pertinent Diagnosis COVID-19 (+) Current Diet Regular Height 6 ft Weight 84.7 kg [place] Body Weight (kg) 80.90 BMI 25.3 Weight Status Appropriate Subjective/Other Information Pt screened for LOS. He has consumed 77% of meals since admission. Percent of energy/protein needs met: 74% energy 81% pro Burn Absent Trauma Absent Current % PO Good (75-100%) Minimum of two criteria No Is patient on ventilator? No Is Patient Ambulatory and/or Out of Bed Yes REE-([facility]-ambulatory/OOB) [ 2379.000 NUTR.MSJOOB] Calculation Used for Recommendations [facility] Additional Notes Pro needs 1g/kg/day Fluid needs 1ml/kcal Nutrition Intervention Follow-Up By: 08/16/22 Additional Comments F/U: stable intakes, wt
[2022-08-13] MEDS: MORPHINE 2 MG/1 ML INJ IV PRN (22:41)
[2022-08-14] MEDS: GABAPENTIN 100 MG CAP PO SCH (05:21)
[2022-08-14] MEDS: HEPARIN 5,000 UNIT/1 ML VIAL SUB-Q SCH (05:22)
--- NOTE | 2022-08-14 08:29 | Discharge Summary ---
Providers - Providers Date of Admission: 08/02/22 22:42 Date of discharge: 08/14/22 Attending physician: DEEPAK WELLER MD 08/02/22 22:42 Consult to Physician [CONS] Routine Comment: Consulting Provider: TERENCE GUY Physician Instructions: Reason For Exam: Lower Extremity weakness, H/O Multiple Sclerosis 08/04/22 07:56 Physical Therapy Evaluation and Treat [CONS] Routine Comment: Reason For Exam: Debility 08/08/22 13:16 Occupational Therapy Evaluate and Treat [CONS] Stat Comment: Eval and Treat Reason For Exam: Occupational Therapy Primary care physician: MAYLIN BOOKER Hospitalization Reason for admission: MS flare Condition: Stable Hospital course: Patient is a 31-year-old male with a history of relapsing remitting multiple sclerosis who presented with findings suggestive of an MS flare. Neurology was consulted and recommended admission. MRI with the brain with and without contrast showed no focal masses hemorrhages hydrocephalus or acute ischemia, it did show significant white matter disease without signs of acute demyelination. MRI of the please follow CDC guidelines for isolation for COVID-19 infection. You have to self quarantine starting 5 days after your positive test (). You must continue to self quarantine as long as you have symptoms such as fever, shortness of breath, cough, sore throat etc. If you do not have any symptoms after self quarantining for 5 total days, you must wear masks for the following 5 days when in contact with others or in public spaces., T and L-spine was compatible with multiple sclerosis without acute demyelination. An incidental left thyroid nodule was also seen. Patient was made by physical therapy and subacute rehab was recommended. COVID 19 PCR was positive but the patient never developed symptoms. Once bed was available, patient was discharged to rehab. Disposition: [facility] Final Discharge Diagnosis (Prints w/discharge instructions): Multiple sclerosis exacerbation. Bladder incontinence. Peripheral neuropathy. Incidental thyroid nodule. Asymptomatic COVID-19 infection Time spent for discharge: 40 minutes Core Measure Documentation - Palliative Care Palliative Care/ Comfort Measures: Not Applicable - Core Measures Any of the following diagnoses?: none Exam - Physical Exam Narrative exam: GENERAL: Well-developed well-nourished. Sitting in a chair no acute distress. HEENT: Normocephalic. Atraumatic. NECK: Supple. CHEST/LUNGS: CTAB on room air HEART/CARDIOVASCULAR: RRR. No murmur, rubs or gallops appreciated. ABDOMEN: +BS. NT/ND. SKIN: No rashes noted. NEURO: No focal motor deficit. BLE weakness. Follows all commands and is ambulatory. MUSCULOSKELETAL: No joint effusion EXTREMITIES: No cyanosis, clubbing or edema. PSYCH: Cooperative. - Constitutional Vitals: Temp Pulse Resp BP Pulse Ox 97 F L 65 16 106/62 98 08/13/22 23:05 08/13/22 23:05 08/13/22 23:05 08/13/22 23:05 08/14/22 06:00 Plan Care Plan Goals: Please schedule an appointment with your outpatient neurologist at your earliest convenience. Please take all medications as they are prescribed to you. Follow up with: MAYLIN BOOKER [Primary Care Provider] - 7 Days Prescriptions: Gabapentin 100 mg PO Q8HR 30 Days #90 capsule
[2022-08-14 12:50] VITALS: BP 119/71
== END 2022-08-14 14:00 | DRG 58 ==
LOC: ED 18:09 → 3A 22:42
PROVIDERS: ADMIT Internal Medicine Geriatric Medicine; ATTEND Student in an Organized Health Care Education/Training Program
DX: G35 Multiple sclerosis (principal); U07.1 COVID-19; G62.9 Polyneuropathy, unspecified; R32 Unspecified urinary incontinence; F17.200 Nicotine dependence, unspecified, uncomplicated; E04.1 Nontoxic single thyroid nodule
CPT/HCPCS: 36415; 70553; 71045; 72156; 72157; 72158; 80048; 80053; 81001; 82140; 82607; 82728; 82947; 83615; 84145; 84439; 84443; 85025; 85379; 86140; 87040; G0378; A9575; J0692; J1644; J1885; J2270; J3370; J7030; J7040; J7050; U0003